=== PATIENT | female | born 1970 | race Caucasian/White ===

== ENCOUNTER 2018-08-29 09:38 | Outpatient (CLI) | payer BC, SELFPAY ==
--- NOTE | 2018-08-29 10:00 | DI.RAD_ITS ---
SYMPTOMS/DIAGNOSIS: CHRONIC BILATERAL SHOULDER PAIN, M25.511, M25.512 LEFT SHOULDER: There is spurring at the inferior aspect of the glenoid. The glenohumeral joint is well maintained. There is mild spurring of the AC joint. IMPRESSION: Moderate degenerative changes. RIGHT SHOULDER: There is spurring at the AC joint. There is mild spurring at the glenoid and inferior humeral head. The joint space is well maintained. IMPRESSION: Mild to moderate degenerative changes.
== END 2018-08-29 09:58 ==
PROVIDERS: PCP Nurse Practitioner Family; Visit Provider Nurse Practitioner Family
DX: M25.511 Pain in right shoulder (principal); M25.512 Pain in left shoulder; M19.011 Primary osteoarthritis, right shoulder; M19.012 Primary osteoarthritis, left shoulder
CPT/HCPCS: 73030

== ENCOUNTER 2018-08-29 10:26 | Outpatient (REF) | payer BC, SELFPAY ==
[2018-08-29 12:08] LABS: Abs Immature Grans 0.01 k/cumm (0.0-0.09); Absolute Basophil Count 0.02 k/cumm (0.0-0.2); Absolute Eosinophil Count 0.16 k/cumm (0.0-0.7); Absolute Lymphocyte Count 1.21 k/cumm (1.2-3.4); Absolute Monocyte Count 0.43 k/cumm (0.11-0.7); Absolute Neutrophil Count 2.71 k/cumm (1.2-6.7); Basophils % 0.4; Eosinophils % 3.5; HCT 44.4 % (36.0-46.0); HGB 14.4 g/dL (12.0-15.5); Immature Grans % 0.2; Lymphocytes % 26.7; Mean Corp. HGB Concentration 32.4 g/dL (32.0-36.0); Mean Corpuscular Volume 89.3 fL (80-95); Mean Platelet Volume 10.6 fL (8.0-11.0); Monocytes % 9.5; Neutrophils % 59.7; Platelet Count 260 x1000/uL (130-400); RBC 4.97 m/cumm (4.00-5.20); RBC Distribution Width 12.9 % (11.7-14.6); White Blood Cell Count 4.54 k/cumm (4.4-10.8)
[2018-08-29 12:19] LABS: ALT 34 U/L (12-78); AST 18 U/L (15-37); Albumin 3.7 g/dL (3.4-5.0); Alkaline Phosphatase 84 U/L (46-116); BUN 24 mg/dL (7-18); C-Reactive Protein 0.08 mg/dL (0.0-0.3); CREATININE 0.86 mg/dL (0.55-1.02); Calcium 9.1 mg/dL (8.5-10.1); Chloride 103 mmol/L (98-107); Creatine Kinase 83 U/L (26-192); Glucose 100 mg/dL (70-100); Potassium 4.4 mmol/L (3.5-5.1); Sodium 141 mmol/L (136-145); Total Protein 6.8 g/dL (6.4-8.2)
[2018-08-29 12:54] LABS: ESR 5 MM/HR (0-20)
[2018-08-30 10:16] LABS: Rheumatoid Factor <8 IU/mL (<12.5)
[2018-08-30 10:36] LABS: Lyme Ab w Rflx to Lyme Confirm Negative
[2018-08-30 14:39] LABS: ANA Interpretation Positive (NEGAT); ANA Titer Pattern 1:320 Speckled
== END 2018-08-29 10:46 ==
LOC: NCHCN 10:26
PROVIDERS: PCP Nurse Practitioner Family; Visit Provider Nurse Practitioner Family
DX: M79.10 Myalgia, unspecified site (principal)
CPT/HCPCS: 80053; 82550; 85652; 85025; 86038; 86140; 86431; 86618

== ENCOUNTER 2018-09-25 21:31 | Inpatient (IN) | payer BC, SELFPAY ==
[2018-09-25 21:54] VITALS: BP 159/111; PULSE 99; RESP 18; TEMP 37.2; O2SAT 99
[2018-09-25] MEDS: Ondansetron 4 MG/2 ML VIAL IVP (22:09)
[2018-09-25] MEDS: Normal Saline 1,000 ML 1000 ML IV (22:10)
[2018-09-25] MEDS: Ketorolac 15 MG/ML VIAL IVP (22:18)
[2018-09-25 22:21] LABS: Abs Immature Grans 0.01 k/cumm (0.0-0.09); Absolute Basophil Count 0.04 k/cumm (0.0-0.2); Absolute Eosinophil Count 0.19 k/cumm (0.0-0.7); Absolute Lymphocyte Count 1.96 k/cumm (1.2-3.4); Absolute Monocyte Count 0.66 k/cumm (0.11-0.7); Absolute Neutrophil Count 4.09 k/cumm (1.2-6.7); Basophils % 0.6; Eosinophils % 2.7; HCT 45.4 % (36.0-46.0); HGB 15.5 g/dL (12.0-15.5); Immature Grans % 0.1; Lymphocytes % 28.2; Mean Corp. HGB Concentration 34.1 g/dL (32.0-36.0); Mean Corpuscular Hemoglobin 29.4 pg (27.0-33.0); Monocytes % 9.5; Neutrophils % 58.9; Platelet Count 300 x1000/uL (130-400); RBC 5.28 m/cumm (4.00-5.20); RBC Distribution Width 12.6 % (11.7-14.6); White Blood Cell Count 6.95 k/cumm (4.4-10.8)
[2018-09-25 22:44] LABS: ALT 29 U/L (12-78); AST 19 U/L (15-37); Albumin 4.3 g/dL (3.4-5.0); Alkaline Phosphatase 83 U/L (46-116); Anion Gap 5.8 mmol/L (3-11); BUN 12 mg/dL (7-18); Bilirubin, Total 1.4 mg/dL (0.2-1.0); CO2 32.2 mmol/L (21.0-32.0); Chloride 103 mmol/L (98-107); Estimated GFR 59.69 (mL/min/1.73m2); Glucose 116 mg/dL (70-100); Lipase 175 U/L (73-393); Potassium 4.1 mmol/L (3.5-5.1); Sodium 141 mmol/L (136-145); Total Protein 7.8 g/dL (6.4-8.2)
--- NOTE | 2018-09-25 22:45 | DI.CT_ITS ---
SYMPTOMS/DIAGNOSIS: VOMITING, ? OBSTRUCTION CT SCAN OF THE ABDOMEN AND PELVIS: CT scan of the abdomen and pelvis was performed following the uneventful administration of intravenous contrast material. Comparison 10/14/17. The visualized lung bases are clear. The liver is normal in size. No suspicious hepatic mass is seen. The portal, superior mesenteric and splenic veins are patent. The gallbladder is negative. There is no biliary ductal dilatation. The pancreas, spleen, adrenal glands, kidneys, ureters and bladder are all unremarkable. The reproductive organs are unremarkable. There is moderate dilatation to the level of the mid small bowel. The terminal ileum is of normal caliber as is the colon. The findings are suspicious for a small bowel obstruction. No findings to suggest an acute appendicitis are present. There is a trace amount of free fluid in the pelvis. No pneumoperitoneum or significant abdominal or pelvic adenopathy is seen. The thoracic aorta is of normal caliber. Degenerative changes are seen in the spine. IMPRESSION: 1. Findings of a small bowel obstruction. The transition appears to lie in the mid pelvis (series 5 image 675). 2. Minimal ascites.
[2018-09-25] MEDS: Omnipaque 350 MG/ML 100 ML BTL IJ (22:52)
[2018-09-25] MEDS: Normal Saline Flush 10 ML SYR IVP (22:53)
[2018-09-25] MEDS: Lidocaine 2% Viscous 15 ML CUP (23:14)
--- NOTE | 2018-09-25 23:18 | ED.GENADUL_ITS ---
Discharge Plan Disposition Patient Disposition: [facility]IENT Condition: Good Discharge Details Chief Complaint: Abd Prob Clinical Impression: SBO (small bowel obstruction) Primary Care Provider: Bethel Oates ED Provider: Naif Frank Home Meds and New Rx's Prescriptions: No Action multivitamin with minerals 1 EACH tablet 1 ea PO DAILY RF: 0 gabapentin 300 MG capsule 300 mg PO TID RF: 0 Medical Decision Making Is a pleasant 47-year-old female with a past medical history of a Joie fundoplication who presents today for evaluation of retching and abdominal pain for the last 4 hours she does have a history of a previous obstruction. Physical exam demonstrates a mildly distended abdomen, slightly reduced bowel sounds. Signs and symptoms are notably concerning and suspicious for obstruction. Laboratory work-up demonstrates no elevated white count, normal hemoglobin, normal electrolytes, bilirubin is slightly elevated at 1.4, lipase is normal. Patient was given Zofran, this did not improve her symptoms. CT scan was ordered, we are pending formal report however personal observation as well as Dr. Vázquez's review of the images demonstrates notable evidence of small bowel obstruction. An NG tube was placed and the patient has notable improvement of her symptoms. Patient will be admitted under Dr. Vázquez for 24- hour observation. She has requested that I place bridging orders, and these have been placed. I have extensively reviewed the treatment plan with the patient. I have addressed all patient concerns at this time. I have also discussed the plan with the admitting physician and they agree with the current assessment and plan and have agreed to assume responsibility for the patient. All parties demonstrate verbal understanding and agreement with our assessment and plan at this time. CT results from virtual radiology demonstrate evidence of small bowel obstruction and minimal ascites. No other acute process. Patient will be admitted under Dr. Vázquez to the floor CLINICAL HISTORY: 47 years old, female; Pain and signs and symptoms; Generalized; Prior surgery; Surgery date: 6+ months; Surgery type: Hysterectomy, , tubal ligation; Patient HX: Severe abdominal pain and vomiting TECHNIQUE: Imaging protocol: Axial computed tomography images of the abdomen and pelvis with intravenous contrast. Coronal and sagittal reformatted images were created and reviewed. Radiation optimization: All CT scans at this facility use at least one of these dose optimization techniques: automated exposure control; mA and/or kV adjustment per patient size (includes targeted exams where dose is matched to clinical indication); or iterative reconstruction. Contrast material: OMNIPAQUE 350; Contrast volume: 100 ml; Contrast route: IV; COMPARISON: CT ABD PELVIS WITH CONTRAST 10/14/2017 10:33 PM FINDINGS: ABDOMEN: Liver: Normal. No mass. Gallbladder and bile ducts: Normal. No calcified stones. No ductal dilation. Pancreas: Normal. No ductal dilation. Spleen: Normal. No splenomegaly. Adrenals: Normal. No mass. Kidneys and ureters: Normal. No hydronephrosis. Stomach and bowel: Small bowel obstruction. Appendix: No evidence of appendicitis. PELVIS: Bladder: Unremarkable as visualized. Reproductive: Status post hysterectomy. ABDOMEN and PELVIS: Intraperitoneal space: Minimal ascites. Bones/joints: No acute fracture. No dislocation. Soft tissues: Unremarkable. Vasculature: Normal. No abdominal aortic aneurysm. Lymph nodes: Normal. No enlarged lymph nodes. IMPRESSION: 1. Small bowel obstruction. 2. Minimal ascites. Thank you for allowing us to participate in the care of your patient. Dictated and Authenticated by: Mayito Perez MD 09/25/2018 11:21 PM Eastern Time ([place] & [place]) HPI General Date/Time Provider Initiated Documentation: 09/25/18 21:52 . HPI Narrative: This is a pleasant 47-year-old female with a past medical history of a laparoscopic Joie procedure, hysterectomy, who presents today for evaluation of abdominal pain and vomiting for the last 4 hours. Patient states that she has had a previous obstruction in the past and this does feel similar to that. She denies any hematemesis, she is actually been retching more so than actually vomiting. She denies any diarrhea, fever or chills. She does admit to mild abdominal pain and discomfort which she describes is notably crampy. She denies any chest pain or shortness of breath. She has no other complaints at this time. No other modifying factors. Related Data Home Medications Medication Instructions Recorded Confirmed multivitamin with minerals 1 ea PO DAILY 06/22/14 09/25/18 gabapentin 300 mg PO TID 08/29/17 09/25/18 Allergies Allergy/AdvReac Type Severity Reaction Status Date / Time Penicillins Allergy Unknown unknown Unverified 09/25/18 21:59 General Stated Complaint: Abd Prob JERICA: 3 Review of Systems Review of Systems All systems reviewed & are unremarkable except as noted in HPI and below PFSH Medical History Carpal tunnel syndrome Endometriosis uterine fibroids Surgical History Vaginal hysterectomy Social History Smoking/Tobacco Use Status: Never Alcohol Intake: never Drug use: Never Do you feel safe at home: Yes Do you feel safe in your relationship?: Yes Exam Narrative Exam Narrative: 1.Const: Well-nourished, Well-developed, appearing stated age 2.Eyes: PERRL, no conjunctival injection, and symmetrical lids. 3.ENT: Atraumatic external nose and ears. Moist MM. Neck: Symmetric, trachea midline, No thyromegaly. 4.CVS: +S1/S2, No murmurs or gallops. Peripheral pulses 2+ and equal in all extremities. Brisk capillary refill in all extremities. 5.RESP: Unlabored respiratory effort. Clear to auscultation bilaterally. No wheezes rales or rhonchi 6.GI: Soft, minimally distended, No hepatosplenomegaly. No guarding or rebound. Generalized tenderness throughout. Reduced bowel sounds are noted. 7.MSK: Normocephalic/Atraumatic, Extremities w/o deformity or ttp No cyanosis or clubbing, Normal movement of all extremities 8.Skin: Warm, Dry. No rashes or lesions. 9.Neuro: supervisor counseling and guidance II-XII grossly intact. Sensation grossly intact, no focal neurologic deficits. 10.Psych: (AAO) x3. Appropriate mood and affect Course Vital Signs Temperature 37.2 C 09/25/18 21:54 Pulse 99 H 09/25/18 21:54 Respiratory Rate 18 09/25/18 21:54 Blood Pressure 159/111 H 09/25/18 21:54 Pulse Oximetry 99 09/25/18 21:54 Temperature 37.2 C 09/25/18 21:54 Temperature Source Skin 09/25/18 21:54 Pulse 99 H 09/25/18 21:54 Respiratory Rate 18 09/25/18 21:54 Respiratory Effort Non-Labored 09/25/18 21:59 Blood Pressure 159/111 H 09/25/18 21:54 Blood Pressure Position Sitting 09/25/18 21:54 Pulse Oximetry 99 09/25/18 21:54 Oxygen Delivery Method Room Air 09/25/18 21:54 Oxygen Flow Rate 0 09/25/18 21:54 Pain Level 10 09/25/18 22:15 Lab/Test Results Lab/Test Results: Laboratory Tests Range/Units 09/25/18 09/25/18 22:10 22:10 WBC (4.4-10.8) k/cumm 6.95 RBC (4.00-5.20) m/cumm 5.28 H Hgb (12.0-15.5) g/dL 15.5 Hct (36.0-46.0) % 45.4 MCV (80-95) fL 86.0 MCH (27.0-33.0) pg 29.4 MCHC (32.0-36.0) g/dL 34.1 RDW (11.7-14.6) % 12.6 Plt Count (130-400) x1000/uL 300 MPV (8.0-11.0) fL 10.0 Immature Gran % 0.1 Neutrophils % 58.9 Lymphocytes % 28.2 Monocytes % 9.5 Eosinophils % 2.7 Basophils % 0.6 Absolute Neutrophils (1.2-6.7) k/cumm 4.09 Absolute Lymphocytes (1.2-3.4) k/cumm 1.96 Absolute Monocytes (0.11-0.7) k/cumm 0.66 Absolute Eosinophils (0.0-0.7) k/cumm 0.19 Absolute Basophils (0.0-0.2) k/cumm 0.04 Sodium (136-145) mmol/L 141 Potassium (3.5-5.1) mmol/L 4.1 Chloride (98-107) mmol/L 103 Carbon Dioxide (21.0-32.0) mmol/L 32.2 H Anion Gap (3-11) mmol/L 5.8 BUN (7-18) mg/dL 12 Creatinine (0.55-1.02) mg/dL 1.00 Estimated GFR/1.73 m2 (mL/min/1.73m2) 59.69 Glucose (70-100) mg/dL 116 H Calcium (8.5-10.1) mg/dL 10.0 Total Bilirubin (0.2-1.0) mg/dL 1.4 H AST (15-37) U/L 19 ALT (12-78) U/L 29 Alkaline Phosphatase (46-116) U/L 83 Total Protein (6.4-8.2) g/dL 7.8 Albumin (3.4-5.0) g/dL 4.3 Lipase (73-393) U/L 175
[2018-09-25] MEDS: LORazepam 2 MG/ML VIAL 0.5 MG IVP (23:20)
--- NOTE | 2018-09-25 23:21 | DI.VRAD_ITS ---
EXAM: CT Abdomen and Pelvis With Contrast EXAM DATE/TIME: 09/25/2018 10:48 PM CLINICAL HISTORY: 47 years old, female; Pain and signs and symptoms; Generalized; Prior surgery; Surgery date: 6+ months; Surgery type: Hysterectomy, , tubal ligation; Patient HX: Severe abdominal pain and vomiting TECHNIQUE: Imaging protocol: Axial computed tomography images of the abdomen and pelvis with intravenous contrast. Coronal and sagittal reformatted images were created and reviewed. Radiation optimization: All CT scans at this facility use at least one of these dose optimization techniques: automated exposure control; mA and/or kV adjustment per patient size (includes targeted exams where dose is matched to clinical indication); or iterative reconstruction. Contrast material: OMNIPAQUE 350; Contrast volume: 100 ml; Contrast route: IV; COMPARISON: CT ABD PELVIS WITH CONTRAST 10/14/2017 10:33 PM FINDINGS: ABDOMEN: Liver: Normal. No mass. Gallbladder and bile ducts: Normal. No calcified stones. No ductal dilation. Pancreas: Normal. No ductal dilation. Spleen: Normal. No splenomegaly. Adrenals: Normal. No mass. Kidneys and ureters: Normal. No hydronephrosis. Stomach and bowel: Small bowel obstruction. Appendix: No evidence of appendicitis. PELVIS: Bladder: Unremarkable as visualized. Reproductive: Status post hysterectomy. ABDOMEN and PELVIS: Intraperitoneal space: Minimal ascites. Bones/joints: No acute fracture. No dislocation. Soft tissues: Unremarkable. Vasculature: Normal. No abdominal aortic aneurysm. Lymph nodes: Normal. No enlarged lymph nodes. IMPRESSION: 1. Small bowel obstruction. 2. Minimal ascites. Dictated and Authenticated by: Mayito Perez MD. Ordering:LEE ANN Disla MD
[2018-09-25 23:26] VITALS: BP 133/74; PULSE 87; RESP 18; TEMP 36.8; O2SAT 97
[2018-09-26] VITALS (8 sets, daily range): BP systolic 117–153; BP diastolic 63–92; PULSE 56–76; RESP 14–18; TEMP 36.6–37.1; O2SAT 94–99
[2018-09-26] MEDS: Normal Saline Flush 10 ML SYR IVP ×3 (00:38→11:27)
[2018-09-26] MEDS: Normal Saline 1,000 ML 200 ML IV ×2 (00:38→05:30)
[2018-09-26] MEDS: HYDROmorphone 2 MG/ML VIAL 0.5 MG IVP (01:51)
--- NOTE | 2018-09-26 06:29 | HPE_ITS ---
Date of service: 09/26/18 Time of Service: 06:29 Assessment and Plan (1) Partial small bowel obstruction: Current visit: No Status: Acute 47 y/o female who presents with signs and symptoms of small bowel obstr uction. Clinically improving with bowel rest and NG decompression. (+) flatus and decreased pain. Follow-up AXR ordered for today. Follow-up labs in am. Continue NG decompression for now. May have ice chips. Will sign out to consulting senior practice director surgoen. History of Present Illness Chief Complaint: Abdominal pain Narrative: 47 y/o female admitted through the ED with abdominal pain, nausea, and vomiting. Patient notes that she ate a sandwich at about 7:30 pm last night and shortly afterwards developed severe mid-upper abdominal pain and nausea. She had some bilious fluid emesis but was mostly retchiing and having dry heaves. She is s/p Joie fundoplication. She has also had a hysterectomy. She notes that her last surgery was ~ 2009. She last had a BM yesterday morning which was formed and regular. She is passing flatus today. Her abdominal pain is improved this am but still present. CT abd/pelvis was performed in the ED last night. Films reviewed. Large gastric bubble seen with fluid filled distended small bowel loops on my review. CT is similar in appearance to her CT from September 2017 when she was also hospitalized for SBO. NG placed in the ED with 450 cc output recorded since it was placed. WBC WNL. Review of Systems Review of Systems All systems reviewed & are unremarkable except as noted in HPI and below Constitutional Denies chills, Denies fever(s) and Reports other (hot flashes) Cardiovascular Denies chest pain, Denies rapid heart rate and Denies dyspnea Respiratory Denies cough and Denies dyspnea Gastrointestinal Reports abdominal pain, Denies constipation, Denies diarrhea, Reports nausea and Reports vomiting Genitourinary Denies hematuria, Reports hot flashes and Denies dysuria Musculoskeletal Reports myalgias and Reports arthralgias Comments: Patient notes she has an appointment to see a liquified natural gas technician this week [facility] Medical History Carpal tunnel syndrome Endometriosis uterine fibroids Surgical History History of Joie fundoplication (Chronic) Vaginal hysterectomy Social History Smoking/Tobacco Use Status: Never Alcohol Intake: never Drug use: Never Do you feel safe at home: Yes Do you feel safe in your relationship?: Yes Meds Home Medications Medication Instructions Recorded Confirmed Type multivitamin with minerals 1 ea PO DAILY 06/22/14 09/25/18 History gabapentin 300 mg PO TID 08/29/17 09/25/18 History Allergies Allergy/AdvReac Type Severity Reaction Status Date / Time Penicillins Allergy Unknown unknown Unverified 09/25/18 21:59 Exam Const General: cooperative and no acute distress Nutritional Appearance: average body habitus Orientation: alert and oriented x3 HENMT Head: normocephalic and atraumatic Ears: hearing grossly normal bilaterally Eyes Sclera: sclerae normal Resp Effort & Inspection: normal respiratory effort and able to speak in complete se ntences Auscultation: clear to auscultation bilaterally Cardio Rate: regular rate Rhythm: regular rhythm GI Inspection: non-distended Palpation: soft, not firm, no guarding, not rigid and tender in the epigastrum (mildly tender to palpation) Auscultation: normal bowel sounds Skin General skin exam: no rashes or lesions noted and no jaundice Neuro General: alert and oriented x3 Speech: speech normal Results Imaging Abdomen CT scan report/results: report reviewed and image reviewed CT scan - pelvis: report reviewed and image reviewed Imaging Studies: Patient Name: LILIANA GREY #: [id number]: ER Ordering Provider: : REG ER Primary Care Provider: Bethel Oates NPDate of Exam: 09/25/18Sex: F : 1970Age: 47 Exam(s) EXAM: CT Abdomen and Pelvis With Contrast EXAM DATE/TIME: 09/25/2018 10:48 PM CLINICAL HISTORY: 47 years old, female; Pain and signs and symptoms; Generalized; Prior surgery; Surgery date: 6+ months; Surgery type: Hysterectomy, , tubal ligation; Patient HX: Severe abdominal pain and vomiting TECHNIQUE: Imaging protocol: Axial computed tomography images of the abdomen and pelvis with intravenous contrast. Coronal and sagittal reformatted images were created and reviewed. Radiation optimization: All CT scans at this facility use at least one of these dose optimization techniques: automated exposure control; mA and/or kV adjustment per patient size (includes targeted exams where dose is matched to clinical indication); or iterative reconstruction. Contrast material: OMNIPAQUE 350; Contrast volume: 100 ml; Contrast route: IV; COMPARISON: CT ABD PELVIS WITH CONTRAST 10/14/2017 10:33 PM FINDINGS: ABDOMEN: Liver: Normal. No mass. Gallbladder and bile ducts: Normal. No calcified stones. No ductal dilation. Pancreas: Normal. No ductal dilation. Spleen: Normal. No splenomegaly. Adrenals: Normal. No mass. Kidneys and ureters: Normal. No hydronephrosis. Stomach and bowel: Small bowel obstruction. Appendix: No evidence of appendicitis. PELVIS: Bladder: Unremarkable as visualized. Reproductive: Status post hysterectomy. ABDOMEN and PELVIS: Intraperitoneal space: Minimal ascites. Bones/joints: No acute fracture. No dislocation. Soft tissues: Unremarkable. Vasculature: Normal. No abdominal aortic aneurysm. Lymph nodes: Normal. No enlarged lymph nodes. IMPRESSION: 1. Small bowel obstruction. 2. Minimal ascites. Dictated and Authenticated by: Mayito Perez MD. Ordering:LEE ANN Disla MD Ordered By: CC: Dictated By: Reports vrad 09/25/18 2248 09/25/18 [id number] Transcribed By: Jennifer Farmer This is privileged, confidential information intended only for the provider named. Any use or distribution by any person other than this provider is strictly prohibited. If you receive this report in error, please notify us immediately at [phone] and return the original report to us at the address above. Thank-you. Labs : 09/25/18 22:10 09/25/18 22:10 Laboratory Results - last 24 hr 09/25/18 09/25/18 22:10 22:10 WBC 6.95 RBC 5.28 H Hgb 15.5 Hct 45.4 MCV 86.0 MCH 29.4 MCHC 34.1 RDW 12.6 Plt Count 300 MPV 10.0 Immature Gran % 0.1 Neutrophils % 58.9 Lymphocytes % 28.2 Monocytes % 9.5 Eosinophils % 2.7 Basophils % 0.6 Absolute Neutrophils 4.09 Absolute Lymphocytes 1.96 Absolute Monocytes 0.66 Absolute Eosinophils 0.19 Absolute Basophils 0.04 Sodium 141 Potassium 4.1 Chloride 103 Carbon Dioxide 32.2 H Anion Gap 5.8 BUN 12 Creatinine 1.00 Estimated GFR/1.73 m2 59.69 Glucose 116 H Calcium 10.0 Total Bilirubin 1.4 H AST 19 ALT 29 Alkaline Phosphatase 83 Total Protein 7.8 Albumin 4.3 Lipase 175 Last Vital Signs Temp 36.8 C 09/26/18 00:35 Pulse 61 09/26/18 00:35 Resp 18 09/26/18 00:35 BP 145/81 H 09/26/18 00:35 Pulse Ox 95 09/26/18 00:35
--- NOTE | 2018-09-26 08:32 | DI.RAD_ITS ---
SYMPTOMS/DIAGNOSIS: SMALL BOWEL OBSTRUCTION FLAT AND UPRIGHT ABDOMEN: Comparison CT scan is from the day prior. The visualized lung bases are clear. There is a nasogastric tube coiled in the proximal stomach. The bowel gas pattern is nonspecific. No air fluid levels are seen. There is a large amount of stool seen throughout the colon which may represent constipation. No organomegaly or pneumoperitoneum is present. IMPRESSION: Significant improvement in the appearance of the small bowel compared to the CT scan from 09/25/18. No significant dilated loops of small bowel are appreciated.
[2018-09-26] MEDS: Pantoprazole 40 MG VIAL IVP (11:27)
[2018-09-26] MEDS: Normal Saline 1,000 ML 125 ML IV ×2 (14:27→22:19)
--- NOTE | 2018-09-26 15:28 | PDOC.CMIN ---
- If Service Date Differs Date of service: 09/26/18 Time of Service: 15:28 Care Management Initial Assess REASON FOR HOSPITALIZATION:: Bowel obstruction PAST MEDICAL HISTORY/PAST SURGICAL HISTORY:: Medical hx:GERD; Surgical Hx: Hysterectomy, Surgical: maximilian funduplication PREVIOUS FUNCTIONAL STATUS/SOCIAL/FAMILY SUPPORTS:: Karime lives in [place] in her home. She states her support person is her Boyfriend Matt. She has grown children. 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 Karime is independent with transportation and ADL's. CURRENT FUNCTIONAL STATUS:: Karime is lying in bed she has the NG tube in place her SO is at the bedside. She states she is frustrated she continues to need the NG tube in place. She states she has been working with a regional sales trainer to lose weight and eat better. She states that she has been instructed to eat 25 grams of fiber today she states she has been eating more fruits and vegetables. ADVANCE DIRECTIVES:: None on file - CM offered packet to review. Has patient been provided with information about the portal?: Yes Did the patient sign up for the portal?: No CODE STATUS:: Full Code INSURANCE COVERAGE / FINANCIAL ISSUES:: BCBS CURRENT HOME/COMMUNITY SERVICES/EQUIPMENT:: None PRIMARY CARE PHYSICIAN:: Bethel Oates NP POTENTIAL DISCHARGE NEEDS:: Follow up appointment with primary and surgeon as directed prior to discharge. PATIENT/FAMILY EDUCATION NEEDS:: Discharge education, limitations and follow up plan of care including ask me three and self management. ANTICIPATED BARRIERS TO DISCHARGE:: None TRANSPORTATION:: Via private car with family at time of discharge. PLAN:: Karime is receiving IV fluids and has an NG tube in place and remians NPO. She will be discharged home when medically ready per provider. She will not need any addtional services and will transport home with her boyfriend. CM to continue to provide support discharge planning and disposition.
--- NOTE | 2018-09-26 15:41 | INITIAL_ITS ---
- If Service Date Differs Date of service: 09/26/18 Time of Service: 15:28 Care Management Initial Assess REASON FOR HOSPITALIZATION:: Bowel obstruction PAST MEDICAL HISTORY/PAST SURGICAL HISTORY:: Medical hx:GERD; Surgical Hx: Hysterectomy, Surgical: maximilian funduplication PREVIOUS FUNCTIONAL STATUS/SOCIAL/FAMILY SUPPORTS:: Karime lives in [place] in her home. She states her support person is her Boyfriend Matt. She has grown children. 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 Karime is independent with transportation and ADL's. CURRENT FUNCTIONAL STATUS:: Karime is lying in bed she has the NG tube in place her SO is at the bedside. She states she is frustrated she continues to need the NG tube in place. She states she has been working with a sports trainer to lose weight and eat better. She states that she has been instructed to eat 25 grams of fiber today she states she has been eating more fruits and vegetables. ADVANCE DIRECTIVES:: None on file - CM offered packet to review. Has patient been provided with information about the portal?: Yes Did the patient sign up for the portal?: No CODE STATUS:: Full Code INSURANCE COVERAGE / FINANCIAL ISSUES:: BCBS CURRENT HOME/COMMUNITY SERVICES/EQUIPMENT:: None PRIMARY CARE PHYSICIAN:: Bethel Oates NP POTENTIAL DISCHARGE NEEDS:: Follow up appointment with primary and surgeon as directed prior to discharge. PATIENT/FAMILY EDUCATION NEEDS:: Discharge education, limitations and follow up plan of care including ask me three and self management. ANTICIPATED BARRIERS TO DISCHARGE:: None TRANSPORTATION:: Via private car with family at time of discharge. PLAN:: Karime is receiving IV fluids and has an NG tube in place and remians NPO. She will be discharged home when medically ready per provider. She will not need any addtional services and will transport home with her boyfriend. CM to continue to provide support discharge planning and disposition.
[2018-09-26] MEDS: Enoxaparin 40 MG/0.4 ML SYR SC (16:00)
[2018-09-26] MEDS: FAMOTIDINE 20 MG/50 ML BAG 200 MG IVPB (16:39)
[2018-09-27 03:47] VITALS: BP 141/76; PULSE 61; RESP 17; TEMP 36.3; O2SAT 99
[2018-09-27] MEDS: FAMOTIDINE 20 MG/50 ML BAG 200 MG IVPB ×2 (04:00→16:00)
[2018-09-27] MEDS: Normal Saline 1,000 ML 125 ML IV ×2 (06:23→18:50)
[2018-09-27 07:06] LABS: Abs Immature Grans 0.01 k/cumm (0.0-0.09); Absolute Basophil Count 0.02 k/cumm (0.0-0.2); Absolute Lymphocyte Count 1.38 k/cumm (1.2-3.4); Absolute Monocyte Count 0.49 k/cumm (0.11-0.7); Absolute Neutrophil Count 3.36 k/cumm (1.2-6.7); Basophils % 0.4; Eosinophils % 3.7; HCT 39.9 % (36.0-46.0); HGB 12.8 g/dL (12.0-15.5); Immature Grans % 0.2; Lymphocytes % 25.3; Mean Corp. HGB Concentration 32.1 g/dL (32.0-36.0); Mean Corpuscular Hemoglobin 28.6 pg (27.0-33.0); Mean Corpuscular Volume 89.1 fL (80-95); Mean Platelet Volume 10.2 fL (8.0-11.0); Neutrophils % 61.4; Platelet Count 205 x1000/uL (130-400); RBC 4.48 m/cumm (4.00-5.20); RBC Distribution Width 12.6 % (11.7-14.6); White Blood Cell Count 5.46 k/cumm (4.4-10.8)
[2018-09-27 07:15] VITALS: BP 117/71; PULSE 62; RESP 16; TEMP 36.9; O2SAT 97
[2018-09-27 07:18] LABS: BUN 12 mg/dL (7-18); Calcium 7.9 mg/dL (8.5-10.1); Chloride 110 mmol/L (98-107); Glucose 81 mg/dL (70-100); Magnesium 1.7 mg/dL (1.8-2.4); Potassium 3.8 mmol/L (3.5-5.1); Sodium 146 mmol/L (136-145)
--- NOTE | 2018-09-27 07:49 | W.PM.PROGNOT ---
Documented by User: RONALD Dye 09/27/18 07:55 Date of Service Date of service: 09/27/18 Time of Service: 07:49 Assessment and Plan (1) Partial small bowel obstruction: Current visit: Yes Status: Acute NG tube less than <100 mLs output from 1500 (09/26) until this morning. Will clamp and check residuals, if less than 60 will pull the NG tube. NSG notified. Encouraged activity out of bed and ambulating as tolerated. Normal Bowel sounds. No BM Continue NPO Subjective Interval history since last seen: Patient reports that she is feeling okay this morning and has been passing some flatus. Denies any nausea or vomiting at this time. No BM. Denies feeling hungry at this point. Exam Const General: cooperative and comfortable Orientation: alert and oriented x3 Resp Effort & Inspection: normal respiratory effort, no audible wheezes and no cough GI Inspection: normal to inspection and non-distended Palpation: soft, no guarding and nontender Auscultation: normal bowel sounds Objective Objective Clinical Data: Abnormal lab results 09/27/18 Range/Units 06:15 Sodium 146 H (136-145) mmol/L Chloride 110 H (98-107) mmol/L Calcium 7.9 L (8.5-10.1) mg/dL Magnesium 1.7 L (1.8-2.4) mg/dL Vital Signs Temperature 36.3 C L 09/27/18 03:47 Temperature Source Tympanic 09/27/18 03:47 Pulse 61 09/27/18 03:47 Pulse Rhythm Regular 09/27/18 07:32 Respiratory Rate 17 09/27/18 03:47 Respiratory Effort 09/27/18 07:32 Respiratory Depth Normal 09/26/18 20:36 Respiratory Pattern Normal 09/27/18 07:32 Blood Pressure 141/76 H 09/27/18 03:47 Blood Pressure Position Sitting 09/25/18 21:54 Pulse Oximetry 99 09/27/18 03:47 Oxygen Delivery Method Room Air 09/27/18 03:47 Oxygen Flow Rate 0 09/27/18 03:47 Pain Level 3 09/26/18 20:08 Intake & Output 09/26/18 09/27/18 09/27/18 18:59 06:59 18:59 Intake Total 850 / 2893.333 2043.333 / 2893.333 Output Total 400 / 1200 800 / 1200 Balance 450 / 4865.514 5058.333 / 1693.333 Weight 73.4 kg Intake: IV 850 / 2893.333 2043.333 / 2893.333 Output: Gastric Drainage 200 / 1000 800 / 1000 Left Nare 200 / 1000 800 / 1000 Urine 200 / 200 Other: Urine Color Yellow Pale Straw Urine Appearance Clear Clear Urine Odor Normal None Voiding Methods Toilet Toilet Laboratory Results WBC 5.46 k/cumm (4.4-10.8) 09/27/18 06:15 RBC 4.48 m/cumm (4.00-5.20) 09/27/18 06:15 Hgb 12.8 g/dL (12.0-15.5) D 09/27/18 06:15 Hct 39.9 % (36.0-46.0) 09/27/18 06:15 MCV 89.1 fL (80-95) 09/27/18 06:15 MCH 28.6 pg (27.0-33.0) 09/27/18 06:15 MCHC 32.1 g/dL (32.0-36.0) 09/27/18 06:15 RDW 12.6 % (11.7-14.6) 09/27/18 06:15 Plt Count 205 x1000/uL (130-400) 09/27/18 06:15 MPV 10.2 fL (8.0-11.0) 09/27/18 06:15 Immature Gran % 0.2 09/27/18 06:15 Neutrophils % 61.4 09/27/18 06:15 Lymphocytes % 25.3 09/27/18 06:15 Monocytes % 9.0 09/27/18 06:15 Eosinophils % 3.7 09/27/18 06:15 Basophils % 0.4 09/27/18 06:15 Absolute Neutrophils 3.36 k/cumm (1.2-6.7) 09/27/18 06:15 Absolute Lymphocytes 1.38 k/cumm (1.2-3.4) 09/27/18 06:15 Absolute Monocytes 0.49 k/cumm (0.11-0.7) 09/27/18 06:15 Absolute Eosinophils 0.20 k/cumm (0.0-0.7) 09/27/18 06:15 Absolute Basophils 0.02 k/cumm (0.0-0.2) 09/27/18 06:15 Sodium 146 mmol/L (136-145) H 09/27/18 06:15 Potassium 3.8 mmol/L (3.5-5.1) 09/27/18 06:15 Chloride 110 mmol/L (98-107) H 09/27/18 06:15 Carbon Dioxide 29.0 mmol/L (21.0-32.0) 09/27/18 06:15 Anion Gap 7.0 mmol/L (3-11) 09/27/18 06:15 BUN 12 mg/dL (7-18) 09/27/18 06:15 Creatinine 0.80 mg/dL (0.55-1.02) 09/27/18 06:15 Estimated GFR/1.73 m2 >= 60.00 (mL/min/1.73m2) 09/27/18 06:15 Glucose 81 mg/dL (70-100) 09/27/18 06:15 Calcium 7.9 mg/dL (8.5-10.1) L 09/27/18 06:15 Magnesium 1.7 mg/dL (1.8-2.4) L 09/27/18 06:15 Total Bilirubin 1.4 mg/dL (0.2-1.0) H 09/25/18 22:10 AST 19 U/L (15-37) 09/25/18 22:10 ALT 29 U/L (12-78) 09/25/18 22:10 Alkaline Phosphatase 83 U/L (46-116) 09/25/18 22:10 Total Protein 7.8 g/dL (6.4-8.2) 09/25/18 22:10 Albumin 4.3 g/dL (3.4-5.0) 09/25/18 22:10 Lipase 175 U/L (73-393) 09/25/18 22:10 Documented by User: Marcella Denis Cristian, 09/27/18 20:29 Assessment and Plan (1) Partial small bowel obstruction: Current visit: Yes Status: Acute pt xray is signif improved today. still lg amount of stool in the colon. pt NGT has been remove she is tolerated cl liq. Had few sm pellet sized BM min pain She has been sipping on Mg citrate. encouraged her to finish to facilitate BM. encourage walking liquids as tolerated. pt son graduates from school tomorrow and wants to be there.
--- NOTE | 2018-09-27 08:30 | DI.RAD_ITS ---
SYMPTOM/DIAGNOSIS: SBO UPRIGHT ABDOMEN: The bowel gas pattern is nonspecific. There is no evidence of obstruction. A nasogastric tube ends in the body of the stomach. SUMMARY: No significant interval change. No evidence of obstruction.
[2018-09-27] MEDS: Pantoprazole 40 MG VIAL IVP (10:59)
[2018-09-27] MEDS: Normal Saline Flush 10 ML SYR IVP (11:00)
[2018-09-27 11:15] VITALS: BP 127/78; PULSE 68; RESP 16; TEMP 36.3; O2SAT 99
[2018-09-27] MEDS: Bisacodyl 10 MG SUPP PR (11:31)
[2018-09-27] MEDS: Polyethylene Glycol 3350 17 GM PACKET PO (11:31)
[2018-09-27] MEDS: MAGNESIUM SULFATE 2 GM/50 ML BAG IVPB (14:08)
[2018-09-27 16:01] VITALS: BP 125/70; PULSE 66; RESP 17; TEMP 37.1; O2SAT 98
[2018-09-27] MEDS: Magnesium Citrate 300 ML BTL PO (16:01)
--- NOTE | 2018-09-27 17:22 | PDOC.CMPRO ---
- If Service Date Differs Date of service: 09/27/18 Time of Service: 17:22 Care Management Progress Note S/O: Karime remains observation, her NG tube has been removed. She is being given medications to assist with bowel movement as her abdominal series shows she has a large amount of stool. Anticipate is she is able to have a bowel movement and tolerate oral intake she will be discharged in the next 24 hours. A: Karime is a 47 year old female admitted with obstruction. P:Karime is receiving IV fluids she remains observation. She will be discharged home when medically ready per provider. She will not need any additional services and will transport home with her boyfriend. CM to continue to provide support discharge planning and disposition.
[2018-09-27] MEDS: Enoxaparin 40 MG/0.4 ML SYR SC (18:12)
[2018-09-27 19:00] VITALS: BP 128/90; PULSE 71; RESP 16; TEMP 36.7; O2SAT 97
[2018-09-28] MEDS: Normal Saline 1,000 ML 125 ML IV (02:31)
[2018-09-28] MEDS: FAMOTIDINE 20 MG/50 ML BAG 200 MG IVPB (04:22)
[2018-09-28 05:15] VITALS: BP 127/71; PULSE 64; RESP 16; TEMP 36.7; O2SAT 98
[2018-09-28 07:20] VITALS: BP 125/82; PULSE 57; RESP 17; TEMP 36.3; O2SAT 100
[2018-09-28] MEDS: Polyethylene Glycol 3350 17 GM PACKET PO (08:38)
--- NOTE | 2018-09-28 09:47 | W.PM.DS.N ---
Date of service: 09/28/18 Time of Service: 09:47 DS: Diagnosis Discharge Diagnosis (1) Partial small bowel obstruction: Status: Acute Discharge Plan Disposition Patient Disposition: HOME Condition: Good Discharge Details Reason For Visit: OBSTRUCTION Admit Date/Time: 09/27/18 19:11 Admit Provider: Marcella Foster Attending Provider: Marcella Foster Primary Care Provider: Bethel Oates Hospital Course Hospital Course: Pt was admitted for partial SBO. This did reserve w/ conservative medical management and no surgical intervention. She has no pain. no N/v and had a lg BM at the time of d/c. She had no complications during admission. Home Meds and New Rx's Prescriptions: No Action multivitamin with minerals 1 EACH tablet 1 ea PO DAILY RF: 0 gabapentin 300 MG capsule 300 mg PO TID RF: 0 Discharge Instructions Instructions: Low Fiber Diet (DC), Low Fiber Diet (GEN) Additional Instructions: push non-caffeined fluids. 8-12 glasses per day soft/bland diet for 1wk. avoid raw vegy/breads/crackers/pork/steak x 1 wk walk /activity to tolerance avoid constipation MOM or Miralax as needed Stand Alone Forms: Nursing Discharge Form Referrals: Bethel Oates [employer]SACTION COORDINATOR [Primary Care Provider] - 10/11/18 1:30 pm Activity:: Activity as Tolerated Equipment/Supplies:: No Equipment Needed Diet:: low fiber x 1 wk Discharge Orders Discharge Orders: Discharge Order (Routine); Ordered 09/28/18 Ordered By: Marcella oFster Discharge Data Discharge Date/Time-TO BE ENTERED AT DEPARTURE: 09/28/18 10:35 DS: Data Vitals/I&O Vitals and I&O: Vital Signs Temperature 36.3 C L 09/28/18 07:20 Temperature Source Tympanic 09/28/18 07:20 Pulse 57 L 09/28/18 07:20 Pulse Rhythm Regular 09/28/18 07:41 Respiratory Rate 17 09/28/18 07:20 Respiratory Effort 09/28/18 07:41 Respiratory Depth Normal 09/28/18 07:41 Respiratory Pattern Normal 09/28/18 07:41 Blood Pressure 125/82 09/28/18 07:20 Blood Pressure Position Sitting 09/25/18 21:54 Pulse Oximetry 100 09/28/18 07:20 Oxygen Delivery Method Room Air 09/28/18 07:20 Oxygen Flow Rate 0 09/28/18 07:20 Pain Level 2 09/27/18 11:15 Intake & Output 09/27/18 09/27/18 09/28/18 11:59 23:59 11:59 Intake Total 1281.25 / 2940.00 1658.75 / 2940.00 1710.417 / 1710.417 Output Total 250 / 1150 900 / 1150 Balance 1031.25 / 1790.00 758.75 / 1790.00 1710.417 / 1710.417 Weight 73.4 kg 74.8 kg Intake: IV 1281.25 / 2100.00 818.75 / 2100.00 1020.417 / 1020.417 Oral 840 / 840 690 / 690 Output: Gastric Drainage 250 / 250 Left Nare 250 / 250 Stool 900 / 900 Other: Urine Color Pale Pale Pale Yellow Yellow Urine Appearance Clear Clear Clear Urine Odor None None None Comment Patient voiding independantly Voiding independantly Stool Size Copious Small Stool Characteristics Liquid Liquid Brown Voiding Methods Toilet Toilet Toilet [facility] Medical History Partial small bowel obstruction (Acute) Carpal tunnel syndrome Endometriosis uterine fibroids Surgical History History of Joie fundoplication (Chronic) Vaginal hysterectomy Social History Smoking/Tobacco Use Status: Never Alcohol Intake: never Drug use: Never Do you feel safe at home: Yes Do you feel safe in your relationship?: Yes
--- NOTE | 2018-09-28 09:50 | DSE_ITS ---
Date of service: 09/28/18 Time of Service: 09:47 DS: Diagnosis Discharge Diagnosis (1) Partial small bowel obstruction: Status: Acute Discharge Plan Disposition Patient Disposition: HOME Condition: Good Discharge Details Reason For Visit: OBSTRUCTION Admit Date/Time: 09/27/18 19:11 Admit Provider: Marcella Foster Attending Provider: Marcella Foster Primary Care Provider: Bethel Oates Hospital Course Hospital Course: Pt was admitted for partial SBO. This did reserve w/ conservative medical management and no surgical intervention. She has no pain. no N/v and had a lg BM at the time of d/c. She had no complications during admission. Home Meds and New Rx's Prescriptions: No Action multivitamin with minerals 1 EACH tablet 1 ea PO DAILY RF: 0 gabapentin 300 MG capsule 300 mg PO TID RF: 0 Discharge Instructions Instructions: Low Fiber Diet (DC), Low Fiber Diet (GEN) Additional Instructions: push non-caffeined fluids. 8-12 glasses per day soft/bland diet for 1wk. avoid raw vegy/breads/crackers/pork/steak x 1 wk walk /activity to tolerance avoid constipation MOM or Miralax as needed Stand Alone Forms: Nursing Discharge Form Referrals: Bethel Oates [employer]ERTER [Primary Care Provider] - 10/11/18 1:30 pm Activity:: Activity as Tolerated Equipment/Supplies:: No Equipment Needed Diet:: low fiber x 1 wk Discharge Orders Discharge Orders: Discharge Order (Routine); Ordered 09/28/18 Ordered By: Marcella Foster Discharge Data Discharge Date/Time-TO BE ENTERED AT DEPARTURE: 09/28/18 10:35 DS: Data Vitals/I&O Vitals and I&O: Vital Signs Temperature 36.3 C L 09/28/18 07:20 Temperature Source Tympanic 09/28/18 07:20 Pulse 57 L 09/28/18 07:20 Pulse Rhythm Regular 09/28/18 07:41 Respiratory Rate 17 09/28/18 07:20 Respiratory Effort 09/28/18 07:41 Respiratory Depth Normal 09/28/18 07:41 Respiratory Pattern Normal 09/28/18 07:41 Blood Pressure 125/82 09/28/18 07:20 Blood Pressure Position Sitting 09/25/18 21:54 Pulse Oximetry 100 09/28/18 07:20 Oxygen Delivery Method Room Air 09/28/18 07:20 Oxygen Flow Rate 0 09/28/18 07:20 Pain Level 2 09/27/18 11:15 Intake & Output 09/27/18 09/27/18 09/28/18 11:59 23:59 11:59 Intake Total 1281.25 / 2940.00 1658.75 / 2940.00 1710.417 / 1710.417 Output Total 250 / 1150 900 / 1150 Balance 1031.25 / 1790.00 758.75 / 1790.00 1710.417 / 1710.417 Weight 73.4 kg 74.8 kg Intake: IV 1281.25 / 2100.00 818.75 / 2100.00 1020.417 / 1020.417 Oral 840 / 840 690 / 690 Output: Gastric Drainage 250 / 250 Left Nare 250 / 250 Stool 900 / 900 Other: Urine Color Pale Pale Pale Yellow Yellow Urine Appearance Clear Clear Clear Urine Odor None None None Comment Patient voiding independantly Voiding independantly Stool Size Copious Small Stool Characteristics Liquid Liquid Brown Voiding Methods Toilet Toilet Toilet [facility] Medical History Partial small bowel obstruction (Acute) Carpal tunnel syndrome Endometriosis uterine fibroids Surgical History History of Joie fundoplication (Chronic) Vaginal hysterectomy Social History Smoking/Tobacco Use Status: Never Alcohol Intake: never Drug use: Never Do you feel safe at home: Yes Do you feel safe in your relationship?: Yes
--- NOTE | 2018-09-28 09:52 | W.PM.PROGNOT ---
Date of Service Date of service: 09/28/18 Time of Service: 09:52 Assessment and Plan (1) Partial small bowel obstruction: Current visit: No Status: Acute Subjective Interval history since last seen: Pt is doing well. no headaches. No CP or SOB. no productive cough. no dysuria. no leg pain or swelling. no abdom pain. tolerating po's. lg amount of liquid stool. Exam Const General: cooperative, healthy appearing, comfortable, no acute distress, well developed and well groomed Nutritional Appearance: average body habitus and well nourished Orientation: alert, awake and oriented x3 HENMT Head: normal to inspection, normocephalic and atraumatic Ears: hearing grossly normal bilaterally and external ears normal General nose exam: external nose normal Face and sinus: normal facial exam and sinuses nontender Mouth: oral mucosae normal, lip normal, tongue normal and moist mucous membranes Teeth and gingiva: dentition normal Eyes General: appearance normal, both eyes and all related structures Conjunctivae: conjunctivae normal Sclera: sclerae normal Pupils: PERRL Neck Neck: normal visual inspection and full ROM Chest Chest: normal inspection of the chest Resp Effort & Inspection: normal respiratory effort, able to speak in complete sentences, no cough, no nasal flaring, not tachypneic and no use of accessory muscles Auscultation: clear to auscultation bilaterally, no rales, no rhonchi and no wheezes Cardio Jugular venous pressure: no JVD Rate: regular rate Rhythm: regular rhythm GI Inspection: normal to inspection, no edema and non-distended Palpation: soft, no masses, nontender and No ascites Auscultation: normal bowel sounds Other: no pain post sx changes noted. no hernias Skin General skin exam: no rashes or lesions noted Trauma: no lacerations or abrasions Neuro General: alert, oriented x3, oriented, gait normal, moves all extremities, no focal motor deficits and CN's II-XI intact bilaterally Cognition: normal cognition Speech: speech normal Gait: normal gait Motor: muscle tone normal throughout Extrem General: normal to inspection, full ROM and no clubbing, cyanosis or edema Psych Appearance: grossly normal and well kempt Mental Status: mental status grossly normal Speech and Movement: speech and movement normal Affect: normal affect Objective Objective Clinical Data: Vital Signs Temperature 36.3 C L 09/28/18 07:20 Temperature Source Tympanic 09/28/18 07:20 Pulse 57 L 09/28/18 07:20 Pulse Rhythm Regular 09/28/18 07:41 Respiratory Rate 17 09/28/18 07:20 Respiratory Effort 09/28/18 07:41 Respiratory Depth Normal 09/28/18 07:41 Respiratory Pattern Normal 09/28/18 07:41 Blood Pressure 125/82 09/28/18 07:20 Blood Pressure Position Sitting 09/25/18 21:54 Pulse Oximetry 100 09/28/18 07:20 Oxygen Delivery Method Room Air 09/28/18 07:20 Oxygen Flow Rate 0 09/28/18 07:20 Pain Level 2 09/27/18 11:15 Intake & Output 09/27/18 09/27/18 09/28/18 11:59 23:59 11:59 Intake Total 1281.25 / 2940.00 1658.75 / 2940.00 1710.417 / 1710.417 Output Total 250 / 1150 900 / 1150 Balance 1031.25 / 1790.00 758.75 / 1790.00 1710.417 / 1710.417 Weight 73.4 kg 74.8 kg Intake: IV 1281.25 / 2100.00 818.75 / 2100.00 1020.417 / 1020.417 Oral 840 / 840 690 / 690 Output: Gastric Drainage 250 / 250 Left Nare 250 / 250 Stool 900 / 900 Other: Urine Color Pale Pale Pale Yellow Yellow Urine Appearance Clear Clear Clear Urine Odor None None None Comment Patient voiding independantly Voiding independantly Stool Size Copious Small Stool Characteristics Liquid Liquid Brown Voiding Methods Toilet Toilet Toilet Laboratory Results WBC 5.46 k/cumm (4.4-10.8) 09/27/18 06:15 RBC 4.48 m/cumm (4.00-5.20) 09/27/18 06:15 Hgb 12.8 g/dL (12.0-15.5) D 09/27/18 06:15 Hct 39.9 % (36.0-46.0) 09/27/18 06:15 MCV 89.1 fL (80-95) 09/27/18 06:15 MCH 28.6 pg (27.0-33.0) 09/27/18 06:15 MCHC 32.1 g/dL (32.0-36.0) 09/27/18 06:15 RDW 12.6 % (11.7-14.6) 09/27/18 06:15 Plt Count 205 x1000/uL (130-400) 09/27/18 06:15 MPV 10.2 fL (8.0-11.0) 09/27/18 06:15 Immature Gran % 0.2 09/27/18 06:15 Neutrophils % 61.4 09/27/18 06:15 Lymphocytes % 25.3 09/27/18 06:15 Monocytes % 9.0 09/27/18 06:15 Eosinophils % 3.7 09/27/18 06:15 Basophils % 0.4 09/27/18 06:15 Absolute Neutrophils 3.36 k/cumm (1.2-6.7) 09/27/18 06:15 Absolute Lymphocytes 1.38 k/cumm (1.2-3.4) 09/27/18 06:15 Absolute Monocytes 0.49 k/cumm (0.11-0.7) 09/27/18 06:15 Absolute Eosinophils 0.20 k/cumm (0.0-0.7) 09/27/18 06:15 Absolute Basophils 0.02 k/cumm (0.0-0.2) 09/27/18 06:15 Sodium 146 mmol/L (136-145) H 09/27/18 06:15 Potassium 3.8 mmol/L (3.5-5.1) 09/27/18 06:15 Chloride 110 mmol/L (98-107) H 09/27/18 06:15 Carbon Dioxide 29.0 mmol/L (21.0-32.0) 09/27/18 06:15 Anion Gap 7.0 mmol/L (3-11) 09/27/18 06:15 BUN 12 mg/dL (7-18) 09/27/18 06:15 Creatinine 0.80 mg/dL (0.55-1.02) 09/27/18 06:15 Estimated GFR/1.73 m2 >= 60.00 (mL/min/1.73m2) 09/27/18 06:15 Glucose 81 mg/dL (70-100) 09/27/18 06:15 Calcium 7.9 mg/dL (8.5-10.1) L 09/27/18 06:15 Magnesium 1.7 mg/dL (1.8-2.4) L 09/27/18 06:15 Total Bilirubin 1.4 mg/dL (0.2-1.0) H 09/25/18 22:10 AST 19 U/L (15-37) 09/25/18 22:10 ALT 29 U/L (12-78) 09/25/18 22:10 Alkaline Phosphatase 83 U/L (46-116) 09/25/18 22:10 Total Protein 7.8 g/dL (6.4-8.2) 09/25/18 22:10 Albumin 4.3 g/dL (3.4-5.0) 09/25/18 22:10 Lipase 175 U/L (73-393) 09/25/18 22:10
--- NOTE | 2018-09-28 16:47 | PDOC.CMDIS ---
- If Service Date Differs Date of service: 09/28/18 Time of Service: 16:47 LACE Index Scoring Tool - Questions: Length of Stay (in days): 4 - 6 Acuity (Admit via E.D.?): Yes E.D. Visits: 2 - Answers: Total Score: 9 Risk of Readmission: Low Risk Care Management Discharge Reason for Hospitalization: Bowel obstruction Discharge Plan: Karime is being discharged home today. She is ambulating frequently, she has a large bowel movement and tolerating oral intake. She will follow up with her provider as directed and no other services needed at this time. Karime states she feels ready to return home. Patient/Family Education Needs: Discharge education, limitations and follow up plan of care including ask me three and self management including diet recomendations.
== END 2018-09-28 10:35 | disposition home or self-care (01) | DRG 389 ==
LOC: ER 23:26 → MS 23:57
PROVIDERS: Surgery; Admitting Provider Surgery; Emergency Provider Student in an Organized Health Care Education/Training Program; PCP Nurse Practitioner Family; Visit Provider Surgery
DX: K56.600 Partial intestinal obstruction, unspecified as to cause (principal); R18.8 Other ascites; Z98.890 Other specified postprocedural states
CPT/HCPCS: 36415; 80048; 80053; 83690; 96361; 96374; 96375; 99222; 99232; 99238; 99285; J1650; 74019; 74177; 83735; 85025; 99284; G0378; J1885; J2060; J2405; J3490

== ENCOUNTER 2018-10-08 17:16 | Emergency (ER) | payer BC, SELFPAY ==
[2018-10-08 17:19] VITALS: BP 113/85; PULSE 89; RESP 16; TEMP 36.9; O2SAT 97
[2018-10-08] MEDS: Ibuprofen 800 MG TAB PO (17:34)
[2018-10-08] MEDS: Acetaminophen 500 MG TAB 1000 MG PO (17:34)
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
--- NOTE | 2018-10-08 18:39 | ED.GENADUL_ITS ---
Discharge Plan Disposition Patient Disposition: HOME Condition: Good Discharge Details Chief Complaint: Orthopedic Clinical Impression: Left knee sprain Primary Care Provider: Bethel Oates ED Provider: Naif Frank Home Meds and New Rx's Prescriptions: No Action multivitamin with minerals 1 EACH tablet 1 ea PO DAILY RF: 0 gabapentin 300 MG capsule 300 mg PO TID RF: 0 Discharge Instructions Instructions: Knee Sprain (ED) Additional Instructions: Your x-ray shows no evidence of significant fracture, however there is concern for a potential posterior cruciate ligament tear or avulsion. Please keep the knee immobilizer on at all times, and follow-up closely with orthopedics. If you notice any worsening of your symptoms, or any new symptoms such as vomiting, diarrhea, fever, chills, shortness of breath, chest pain, numbness, weakness, or fainting , please return immediately to the emergency department for reevaluation. Please follow up with your primary care provider as soon as possible for reassessment and reevaluation. As always, it was a pleasure participating in your medical care today. Referrals: Bethel Oates, SUPERVISOR SCREEN MAKING [Primary Care Provider] - Discharge Data Discharge Date/Time-TO BE ENTERED AT DEPARTURE: 10/08/18 19:06 Medical Decision Making This is a pleasant 48-year-old female who presents for evaluation of left knee pain. She is out biking and came to a quick stop by putting out her left leg, subsequently hearing a pop and having notable left knee pain. Exam demonstrates posterior popliteal knee pain, as well as slight proximal gastrocnemius pain. Exam demonstrates no significant laxity but there is notable pain on posterior drawer testing, and Salvador's test. Neurovascular exam is normal, sensation is normal, strength is intact for flexion and extension of the knee, in conjunction for plantar dorsiflexion. I do suspect that she had a mild tear of her soleus muscle, with the location of the proximal gastrocnemius pain, however with the hearing of a pop, as well as the posterior popliteal pain and pain with posterior drawer test I am concerned for potential ligamentous damage. X-ray was ordered does demonstrate a small calcification in the posterior joint recess, concerning for potential bony avulsion of the PCL. This would seem to correlate well clinically with her exam. With an otherwise stable exam, no signs of severe knee instability, I do feel that she can be safely discharged home but does require close orthopedic follow-up. We will place her in a knee immobilizer, schedule orthopedic follow-up, maintain nonweightbearing status, recommend continued NSAIDs and ice for home use. I have extensively reviewed the treatment plan and discharge instructions with the patient and their family. I have addressed all patient concerns at this time. The patient and family was made aware of what symptoms to monitor for that would warrant a return to the emergency department. Discussed the plan with the patient and family, they demonstrate verbal understanding and agreement with our assessment and plan at this time. FINDINGS: Bones/joints: No fracture. Normal alignment. No blastic or lytic lesions. No periostitis or osteolysis. Small joint effusion distending the suprapatellar bursa. Joint spaces are well- maintained. There is a miniscule 2 mm calcification projecting in the posterior joint recess distribution on the lateral view only which is not evident on the comparison radiographs from 08/24/2014. Is not identified on the other views for medial versus lateral localization. This could represent a small capsular avulsion fragment or small avulsion at the PCL attachment. No associated macro fracture is identified in this region. Soft tissues: No gross soft tissue abnormalities. No foreign bodies. IMPRESSION: 1. No macro fractures. No dislocation. 2. Small joint effusion. 3. 2 mm calcification projecting in the posterior joint recess which is new since the 2014. This could represent a small intra-articular calcific body, versus a small posterior capsular avulsion fragment or minimal bony avulsion at the tibial attachment of PCL. If there is clinical concern for destabilizing internal derangement of the knee, consider followup MRI evaluation. Thank you for allowing us to participate in the care of your patient. Dictated and Authenticated by: Ace Smith MD 10/08/2018 6:20 PM Eastern Time ([place] & [place]) HPI General Date/Time Provider Initiated Documentation: 10/08/18 17:17 . HPI Narrative: This is a pleasant 48-year-old female who presents today for evaluation of left knee pain. Patient states that she was out biking, came to a stop and to stop quickly she put her left leg out, she had sudden force on her foot, and at that time heard a pop in her knee and is created notable pain. Happened roughly 1 hour prior to arrival. He has not taken any NSAIDs or other intervention prevention for the pain. Pain is made worse with movement, notable pain with ambulation. She denies any radiation of the pain in her thigh or calf. She denies any numbness or tingling. She denies any other associated symptoms or modifying factors. She denies any recent surgeries, IV or illicit drug use or pertinent family history. She does admit to previous injury to the knee in the past but no prior surgeries. Related Data Home Medications Medication Instructions Recorded Confirmed multivitamin with minerals 1 ea PO DAILY 06/22/14 09/25/18 gabapentin 300 mg PO TID 08/29/17 09/25/18 Allergies Allergy/AdvReac Type Severity Reaction Status Date / Time Penicillins Allergy Unknown unknown Unverified 09/25/18 21:59 General Stated Complaint: Orthopedic JERICA: 3 Review of Systems Review of Systems All systems reviewed & are unremarkable except as noted in HPI and below PFSH Social History Smoking/Tobacco Use Status: Never Alcohol Intake: never Drug use: Never Do you feel safe at home: Yes Do you feel safe in your relationship?: Yes Exam Narrative Exam Narrative: 1.Const: Well-nourished, Well-developed, appearing stated age 2.Eyes: PERRL, no conjunctival injection, and symmetrical lids. 3.ENT: Atraumatic external nose and ears. Moist MM. Neck: Symmetric, trachea midline, No thyromegaly. 4.CVS: +S1/S2, No murmurs or gallops. Peripheral pulses 2+ and equal in all extremities. Brisk capillary refill in all extremities. 5.RESP: Unlabored respiratory effort. Clear to auscultation bilaterally. No wheezes rales or rhonchi 6.GI: Soft, Nontender/Nondistended, No hepatosplenomegaly. No guarding or rebound. 7.MSK: Left knee: The knee is stable to varus, valgus, and anterior drawer stress. Posterior drawer test elicits no significant laxity but does elicit mild to moderate pain. No deformity. Patellar grind test is negative. Salvador test is notably positive for pain both laterally and medially. No ttp to the patella, tibial plateau, or fibular head. Mild reproducible pain over the posterior popliteal space. As well as mild pain over the proximal gastrocnemius. Normal strength for plantar dorsiflexion. No evidence of Achilles tendon rupture, or atypical muscle body component of the gastrocnemius. No significant bruising. Capillary refill brisk in all toes. 8.Skin: Warm, Dry. No rashes or lesions. 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 Sensation grossly intact, no focal neurologic deficits. 10.Psych: (AAO) x3. Appropriate mood and affect Course Vital Signs Temperature 36.9 C 10/08/18 17:19 Pulse 89 10/08/18 17:19 Respiratory Rate 16 10/08/18 17:19 Blood Pressure 113/85 10/08/18 17:19 Pulse Oximetry 97 10/08/18 17:19 Temperature 36.9 C 10/08/18 17:19 Temperature Source Temporal Artery Scan 10/08/18 17:19 Pulse 89 10/08/18 17:19 Respiratory Rate 16 10/08/18 17:19 Respiratory Effort Non-Labored 10/08/18 17:25 Blood Pressure 113/85 10/08/18 17:19 Blood Pressure Position Supine 10/08/18 17:19 Pulse Oximetry 97 10/08/18 17:19 Oxygen Delivery Method Room Air 10/08/18 17:19 Oxygen Flow Rate 0 10/08/18 17:19
== END 2018-10-08 19:06 | disposition home or self-care (01) ==
PROVIDERS: Emergency Provider Student in an Organized Health Care Education/Training Program; PCP Nurse Practitioner Family
DX: S83.92XA Sprain of unspecified site of left knee, initial encounter (principal); V18.0XXA Pedal cycle driver injured in noncollision transport accident in nontraffic accident, initial encounter
CPT/HCPCS: 29505; 73562; 99283; 99282; E0114; L1830

== ENCOUNTER 2018-12-13 11:52 | Outpatient (REF) | payer BC, SELFPAY | END 2018-12-13 12:12 | LOC: NCHCN 11:52 | PROVIDERS: PCP Nurse Practitioner Family; Visit Provider Nurse Practitioner Family | DX: Z00.00 Encounter for general adult medical examination without abnormal findings (principal); N89.8 Other specified noninflammatory disorders of vagina | CPT/HCPCS: 87086; 87480; 87510; 87660 ==

== ENCOUNTER 2019-01-12 08:37 | Outpatient (REF) | payer BC, SELFPAY | END 2019-01-12 08:57 | LOC: NCHCN 08:37 | PROVIDERS: PCP Nurse Practitioner Family; Visit Provider Nurse Practitioner Family | DX: N89.8 Other specified noninflammatory disorders of vagina (principal); R30.0 Dysuria | CPT/HCPCS: 87480; 87510; 87660 ==

== ENCOUNTER 2019-02-06 11:45 | Outpatient (REF) | payer BC, SELFPAY ==
[2019-02-07 14:31] LABS: GC Result Negative (Negative); Specimen Description CERVIX
[2019-02-07 15:45] LABS: Chlamydia Result Positive (Negative)
== END 2019-02-06 12:05 ==
LOC: LBN 11:45
PROVIDERS: PCP Nurse Practitioner Family; Visit Provider Nurse Practitioner Women's Health
DX: Z11.3 Encounter for screening for infections with a predominantly sexual mode of transmission (principal)
CPT/HCPCS: 87491; 87591

== ENCOUNTER 2019-03-20 10:42 | Outpatient (REF) | payer BC, SELFPAY ==
[2019-03-21 13:15] LABS: Chlamydia Result Negative (Negative)
[2019-03-21 15:27] LABS: GC Result Negative (Negative)
== END 2019-03-20 11:02 ==
LOC: LBN 10:42
PROVIDERS: PCP Nurse Practitioner Family; Visit Provider Nurse Practitioner Women's Health
DX: N94.9 Unspecified condition associated with female genital organs and menstrual cycle (principal); Z11.3 Encounter for screening for infections with a predominantly sexual mode of transmission
CPT/HCPCS: 87491; 87591; 87480; 87510; 87660

== ENCOUNTER 2019-06-20 19:22 | Emergency (ER) | payer BC, SELFPAY ==
[2019-06-20 19:28] VITALS: BP 143/88; PULSE 87; RESP 18; TEMP 36.6; O2SAT 99
--- NOTE | 2019-06-20 19:39 | ED.GENADUL_ITS ---
Discharge Plan Disposition Patient Disposition: HOME Condition: Improving Discharge Details Chief Complaint: Urinary Clinical Impression: UTI (urinary tract infection) Primary Care Provider: Bethel Oates ED Provider: Anthony Izquierdo Home Meds and New Rx's Prescriptions: New sulfamethoxazole-trimethoprim [Bactrim DS] 800-160 mg tablet 1 tab PO BID 5 Days Qty: 14 RF: 0 Continued ibuprofen 200 mg capsule 600 mg PO TID-QID PRNRF: 0 amitriptyline 150 mg tablet 150 mg PO DAILY RF: 0 estradiol 0.01 % (0.1 mg/gram) cream 1 gm VG DAILY Qty: 42.5 RF: 2 multivitamin with minerals 1 EACH tablet 1 ea PO DAILY RF: 0 gabapentin 300 MG capsule 300 mg PO TID RF: 0 Discharge Instructions Instructions: Urinary Tract Infection in Women (ED) Additional Instructions: Home to rest. Small, frequent sips of fluids to maintain hydration. Please take antibiotics as prescribed. May use Pyridium, as needed to ease urinary burning and discomfort. Return if you develop a fever, back pain, or any other acute concerns. Please follow-up with Bethel Oates in clinic if not improving in 3 to 5 days time. Referrals: Bethel Oates, TABLEAU ARCHITECT [Primary Care Provider] - Medical Decision Making <Calin Molina MD - Last Filed: 06/20/19 19:52> 48-year-old female presents from home with day 2 of urinary urgency, frequency, burning with urination and did note of blood tinged urine this evening. She has not had back pain, no fever, the pain has been located in the suprapubic region, has not moved, nor has it been colicky. Her vital signs are unremarkable, her exam is reassuring. Urinalysis is pending. I will sign the case out to Dr. Izquierdo with prescriptions for presumptive UTI. Please see his note regarding final impression. <Anthony Izquierdo MD - Last Filed: 06/20/19 20:25> Patient had presented with urinary symptoms and seen initially by Dr. Molina. Please see his initial note for details. Patient signed out to me pending urinalysis. This is returned positive for blood and leukocyte Estrace. On micro she has greater than 50 red cells, 5-10 white cells, few bacteria. Symptoms most consistent with UTI and not kidney stone. She has no back or flank pain. She has no fever or systemic illness. Will start treatment for UTI as per Dr. Molina's plan. Bactrim and Pyridium ordered. Follow-up with primary care next week if not better. Return to ED for fever, vomiting, flank pain, other concerns or problems. Lab Data Lab results reviewed: Yes I reviewed the patient's lab results. HPI <Calin Molina MD - Last Filed: 06/20/19 19:52> General Mode of arrival: ambulatory . Date/Time Provider Initiated Documentation: 06/20/19 19:28 . Limitations to Documentation: no limitations . Information obtained by: patient . History of Present Illness 48 year old F presents to the emergency department with the chief complaint of Due to of urinary frequency, urgency, burning with urination, bloody urine , described as mild, Quality is described as dull, and is localized to the abdomen and pelvis. Patient reports no radiation. Patient started experiencing this hour(s) and it has been constant. No relieving factors improve symptom(s), No exacerbating factors reported . Patient notes denies fever/chills and nausea/vomiting. Patient did receive the following treatments prior to arrival, none Related Data Home Medications Medication Instructions Recorded Confirmed multivitamin with minerals 1 ea PO DAILY 06/22/14 06/20/19 gabapentin 300 mg PO TID 08/29/17 06/20/19 ibuprofen 200 mg capsule 600 mg PO TID-QID PRN cap 10/18/18 06/20/19 amitriptyline 150 mg tablet 150 mg PO DAILY 02/06/19 06/20/19 estradiol 1 gm VG DAILY #42.5 gm 02/06/19 06/20/19 sulfamethoxazole-trimethoprim 1 tab PO BID 5 Days #14 tab 06/20/19 [Bactrim DS] Previous Rx's Medication Instructions Recorded estradiol 1 gm VG DAILY #42.5 gm 02/06/19 sulfamethoxazole-trimethoprim 1 tab PO BID 5 Days #14 tab 06/20/19 [Bactrim DS] Allergies Allergy/AdvReac Type Severity Reaction Status Date / Time Penicillins Allergy Unknown unknown Verified 06/20/19 19:37 General Stated Complaint: GenMedical JERICA: 4 Review of Systems <Calin Molina MD - Last Filed: 06/20/19 19:52> Narrative: 4 systems reviewed and otherwise negative. No vaginal bleeding or discharge, status post hysterectomy. No back pain. The pain has not been colicky. PFSH <Calin Molina MD - Last Filed: 06/20/19 19:52> Medical History Carpal tunnel syndrome Partial small bowel obstruction (Acute) Social History Smoking/Tobacco Use Status: Never Alcohol Intake: never Drug use: Never Do you feel safe at home: Yes Do you feel safe in your relationship?: Yes Female Reproductive History Menstrual Menopause type: surgical Exam <Calin Molina MD - Last Filed: 06/20/19 19:52> Narrative Exam Narrative: GEN: awake, alert, oriented 3. Pleasant, well groomed, interactive. HEAD: Normocephalic, atraumatic EYES: PERRL, EOMI NECK: Full ROM, no GENEVIEVE, no menigismus CHEST/RESP: Nontender, clear to auscultation bilateral, no wheeze/rhonchi/rales CARDIOVASCULAR: RRR, no murmur, rub jean carlos. 2+ Rad pulse bilateral ABDOMEN: Soft, nontender, no mass. +Bowel sounds EXT: Full ROM, no edema, no rash Neuro: Grossly normal neurologic exam, conversant, interactive. Psych: Speech fluent, thoughts congruent, affect normal Course <Calin Molina MD - Last Filed: 06/20/19 19:52> Vital Signs Vital signs: Vital Signs Temperature 36.6 C 06/20/19 19:28 Pulse 87 06/20/19 19:28 Respiratory Rate 18 06/20/19 19:28 Blood Pressure 143/88 H 06/20/19 19:28 Pulse Oximetry 99 06/20/19 19:28 Temperature 36.6 C 06/20/19 19:28 Temperature Source Oral 06/20/19 19:28 Pulse 87 06/20/19 19:28 Respiratory Rate 18 06/20/19 19:28 Respiratory Effort Non-Labored 06/20/19 19:33 Blood Pressure 143/88 H 06/20/19 19:28 Pulse Oximetry 99 06/20/19 19:28 Oxygen Delivery Method Room Air 06/20/19 19:28 Oxygen Flow Rate 0 06/20/19 19:28 Pain Level 2 03/03/20 19:28 Sign Out <Calin Molina MD - Last Filed: 06/20/19 19:52> Sign Out Data: Sign Out Comment: followup UA Last updated by Calin Molina MD at 06/20/19 19:53
[2019-06-20 19:59] LABS: Bilirubin Negative (Negative); Blood Large (Negative); Clarity Cloudy (Clear); Glucose Negative (Negative); Ketones Negative (Negative); Leukocyte Esterase Small (Negative); Nitrite Negative (Negative); Specific Gravity 1.015 (1.005-1.025); Urobilinogen 0.2 EU/dL (Up TO 0.2); pH 6.5 (5-8)
[2019-06-20 20:18] LABS: Epithelial Cells Rare HPF (Negative); Other Cells Negative (Negative); RBC >50 HPF (0-2)
[2019-06-20 20:19] LABS: Bacteria Few HPF (Negative); C & S Indicated? Yes; Casts Negative LPF (Negative); Crystals Negative HPF (Negative); Mucus Negative (Negative)
[2019-06-20 20:26] VITALS: BP 140/80; PULSE 86; RESP 18; TEMP 36.6; O2SAT 99
[2019-06-20] MEDS: Sulfameth/Trimeth DS, 2 TABS/BTL 1 TAB PO (20:26)
[2019-06-20] MEDS: Phenazopyridine 100 MG TAB, 2 TABS/BTL PO (20:26)
--- NOTE | 2019-06-23 12:22 | ED.FU.B_ITS ---
Urine culture results today noted 10,000-50,000 colonies of E. coli. Sensitivity noted that organism resistant to Bactrim which patient was given. Discussed with patient over the phone and she states that her symptoms are improving but she still has some mild dysuria. She is allergic to penicillin. Patient requested additional Pyridium. Macrobid and Pyridium called into patient's pharmacy [facility] in [facility]. She was advised to stop taking the bactrim.
== END 2019-06-20 20:30 | disposition home or self-care (01) ==
PROVIDERS: Emergency Medicine; Emergency Provider Emergency Medicine; PCP Nurse Practitioner Family
DX: N39.0 Urinary tract infection, site not specified (principal); R10.30 Lower abdominal pain, unspecified
CPT/HCPCS: 87077; 99283; 81003; 81015; 87086; 87186

== ENCOUNTER 2020-09-06 10:27 | Outpatient (REF) | payer BC, SELFPAY ==
--- OUTSIDE RECORDS SUMMARY | 2020-09-06 10:33 | XMS_ITS ---
:1970 External Reference #:[id number] Author Care Team Providers Name Role Phone [facility] Primary Care Provider Unavailable Allergies Code Code System Name Reaction Severity Status Onset Penicillin ? ? Active ? Medications Name Status Start Date Stop Date ? ? acetaminophen 300 mg-codeine 30 mg Completed ? 07/21/2016 tablet Allergy 25 mg tablet Active ? Not availab le Take 2 tablets every 4 hours by oral route. Ascomp with Codeine 30 mg-50 mg-325 Active ? Not available mg-40 mg capsule fluconazole 150 mg tablet Completed ? 2016 gabapentin 100 mg capsule Completed ? 2016 gabapentin 300 mg capsule Active ? Not av ailable methylprednisolone 4 mg tablets in a Completed ? 07/21/2016 dose pack metronidazole 0.75 % topical gel Active ? Not available minocycline 100 mg capsule Completed ? 07/21 omeprazole 10 mg capsule,delayed release Active ? Not available Take 1 capsule every day by oral route. tramadol 50 mg tablet Completed ? 07/21/2016 Problems None recorded. Procedures Date Name Performed by ? 05/20/1991 Caesarean Section Information not avai lable ? Eye Surgery Information not avai lable ? Hysterectomy Information not avai lable ? Joie Fundoplication Information not av ailable ? Tubal Ligation Information not avai lable Results Lab Results None recorded. Past Encounters None recorded. Social History Tobacco Smoking Status Never Smoker Vaccine List Vaccine Type DTaP 06/17/2013 Plan of Care Reminders Provider Appointments None ? ? recorded. Lab None ? ? recorded. Referral None ? ? recorded. Procedures None ? ? recorded. Surgeries None ? ? recorded. Imaging None ? ? recorded. Vitals 01/27/2017 11:30AM ESTABLISHED PATIENT 15 Height Weight BMI 5 ft 4 in 174 lbs 16 oz 30 kg/m2 01/13/2017 11:30AM ESTABLISHED PATIENT 15 Height Weight BMI 5 ft 4 in 184 lbs 31.6 kg/m2 11/18/2016 12:45PM ESTABLISHED PATIENT 30 Height Weight BMI 5 ft 4 in 185 lbs 16 oz 31.9 kg/m2 11/04/2016 11:00AM ESTABLISHED PATIENT 30 Height Weight BMI 5 ft 4 in 186 lbs 16 oz 32.1 kg/m2 09/23/2016 11:30AM ESTABLISHED PATIENT 45 Height Weight BMI 5 ft 4 in 192 lbs 33 kg/m2 08/19/2016 11:30AM FOLLOW UP 60 Height Weight BMI 5 ft 4 in 199 lbs 16 oz 34.3 kg/m2 07/21/2016 11:30AM NEW PATIENT 60 Height Weight BMI Blood Pressure 5 ft 4 in 201 lbs 34.5 kg/m2 120/70 mm[Hg]
[2020-09-06 13:04] LABS: HGB 13.1 g/dL (11.2-15.7); MCH 28.4 pg (27.0-33.0); MCHC 32.8 % (32.0-36.0); MCV 86.8 fL (80-95); MPV 10.2 fL (8.0-11.0); Platelet Count 262 10^3/uL (130-400); RBC 4.61 10^6/uL (3.93-5.22); RDW-SD 38.5 fL; WBC 5.59 10^3/uL (4.4-10.8)
[2020-09-06 13:28] LABS: TSH (W/Ref FT4) 1.52 uIU/mL (0.36-3.74)
[2020-09-08 09:26] LABS: HIV-1/2 Ag & Ab Screen Negative (Negative)
[2020-09-09 10:32] LABS: Hepatitis C Ab w Rflx HCV PCR Negative (Negative)
== END 2020-09-06 10:28 | disposition home or self-care (01) ==
LOC: NCHCN 10:27
PROVIDERS: PCP Nurse Practitioner Family; Visit Provider Nurse Practitioner Family
DX: N95.1 Menopausal and female climacteric states (principal); Z78.0 Asymptomatic menopausal state; Z11.4 Encounter for screening for human immunodeficiency virus [HIV]; Z11.59 Encounter for screening for other viral diseases
CPT/HCPCS: 85027; 86803; 87389; 84443

== ENCOUNTER 2021-04-28 10:56 | Outpatient (REF) | payer BC, SELFPAY ==
--- NOTE | 2021-04-28 10:30 | PAPFT_PTH ---
PATIENT: Karime Finn LOC: [facility]#:[id number] AGE/SX: 50/F ROOM: RE04/28/[address]: Bethel Oates : 1970 BED: DIS: 04/28/2021 SPEC #: [id number] RECD: 04/28/21 17:38 STATUS: FAITH REQ #: [id number] RUPESH: 04/28/21 10:[address]: Bethel Oates DEPT: [facility] Cytology RECD BY: Marry Lechuga Tissues: 1 - CX/ENDOCX FOR PAP SMEARS Procedures: PAP THIN PREP/UVM Screening HPV DNA PROBE Comments: [id number]
== END 2021-04-28 10:57 | disposition home or self-care (01) ==
LOC: NCHCN 10:56
PROVIDERS: PCP Nurse Practitioner Family; Visit Provider Nurse Practitioner Family
DX: Z12.4 Encounter for screening for malignant neoplasm of cervix (principal); Z11.51 Encounter for screening for human papillomavirus (HPV)
CPT/HCPCS: 88142; 87624

== ENCOUNTER 2021-07-01 00:46 | Outpatient (CLI) | payer BC, SELFPAY ==
--- NOTE | 2021-07-01 08:00 | DI.MAMMO_ITS ---
Exam(s) MAMMO SCREENING EXAM: MAMMO SCREENING CLINICAL HISTORY: SCREENING, Z12.39 TECHNIQUE: Mammograms were interpreted according to the usual protocol including computer analysis w slinkset CAD system, tomosynthesis and C-view imaging. COMPARISON: 2017 and 2018 FINDINGS: The breasts are composed of scattered fibroglandular densities, Breast Density category B. No suspicious masses or suspicious microcalcifications are seen. No skin thickening or abnormal axillary lymph nodes are seen. There has been no significant change from prior exams. IMPRESSION: BI-RADS Category 1, Negative mammogram Yearly screening mammography is recommended. Breast Density - Category B, scattered fibroglandular densities. A negative radiographic report should not delay biopsy if a dominant or clinically suspicious mass is present. Up to ten percent of cancers are not identified on mammography. A negative report may reinforce clinical impression. Adenosis and dense breasts may obscure an underlying neoplasm. False positive reports average 6 to 10%. Patient will receive a letter notifying them of these results.
== END 2021-07-01 01:06 ==
PROVIDERS: PCP Nurse Practitioner Family; Visit Provider Nurse Practitioner Family
DX: Z12.31 Encounter for screening mammogram for malignant neoplasm of breast (principal)
CPT/HCPCS: 77063; 77067

== ENCOUNTER 2021-09-03 15:06 | Outpatient (REF) | payer BC, SELFPAY ==
[2021-09-03 16:54] LABS: ALT 29 U/L (14-59); AST 23 U/L (15-37); Albumin 3.5 g/dL (3.4-5.0); Alkaline Phosphatase 102 U/L (46-116); Anion Gap 7.1 mmol/L (3-11); BUN 12 mg/dL (7-18); Bilirubin, Total 0.5 mg/dL (0.2-1.0); CO2 27.9 mmol/L (21.0-32.0); CREATININE 0.9 mg/dL (0.55-1.02); Calcium 8.4 mg/dL (8.5-10.1); Chloride 104 mmol/L (98-107); Glucose 106 mg/dL (74-106); Potassium 3.5 mmol/L (3.5-5.1); Sodium 139 mmol/L (136-145); Total Protein 6.6 g/dL (6.4-8.2)
== END 2021-09-03 15:07 | disposition home or self-care (01) ==
LOC: LBN 15:06
PROVIDERS: PCP Nurse Practitioner Family; Visit Provider Physician Assistant Medical
DX: U07.1 COVID-19 (principal)
CPT/HCPCS: 80053

== ENCOUNTER 2022-04-09 09:49 | Day surgery (SDC) | payer BC, SELFPAY ==
--- NOTE | 2022-04-08 20:38 | W.PM.DSUDISC ---
Date of service: 04/09/22 Time of Service: 11:52 Discharge Plan Disposition Patient Disposition: Home Condition: Good Discharge Details Reason For Visit: Screening colonoscopy Attending Provider: Mehran Mendosa Primary Care Provider: Tonya Reveles Home Meds and New Rx's Prescriptions: Continued ibuprofen 200 mg capsule 600 mg PO TID-QID PRN multivitamin with minerals 1 EACH tablet 1 ea PO DAILY celecoxib [Celebrex] 100 mg capsule 100 mg PO BID metronidazole 0.75 % cream 1 applic topical BID Magnesium (oxide/AA chelate) 300 mg capsule 1 cap PO DAILY [id number] mg capsule 1 cap PO BID PRN loratadine 10 mg tablet 10 mg PO DAILY PRN gabapentin 300 MG capsule 300 mg PO TID Discontinued polyethylene glycol 3350 17 gram/dose powder 238 g PO ONCE Qty: 238 0RF Rx Instructions: take per colonoscopy instructions bisacodyl [Dulcolax (bisacodyl)] 5 mg tablet,delayed release (DR/EC) 5 mg PO ONCE Qty: 4 0RF Rx Instructions: take per colonoscopy instructions Discharge Instructions Additional Instructions: 1. If tolerated, consume a soft, low fiber diet for 1-2 days. 2[address] Do not drive, drink alcohol, operate machinery, make critical decisions, or do activities that require coordination or balance for 24 hours. 3. Because air was put into your colon during the procedure, expelling air from your rectum (passing gas or farting) is normal. 4. You may not have a bowel movement for 1-3 days because of the colonoscopy prep. This is normal. 5. Go directly to the emergency room if you notice any of the following: Develop chills (warm to touch), or if you have a thermometer and your temperature is above 101 Difficulty breathing or difficultly swallowing Persistent vomiting Severe abdominal pain, other than gas cramps Severe chest pain Black, tarry stools Any bleeding ? exceeding one tablespoon 6. Call your physician if the site where your intravenous was started becomes red, swollen, painful, and warm to touch. 7. Your physician has reviewed your pre-procedure medications. Please continue to take those medications as previously ordered. You will be given specific information/education regarding any changes to your medications before leaving. Activity:: Activity as Tolerated Diet:: As Tolerated Discharge Orders Discharge Orders: Discharge Order (Routine); Ordered 12/22/22 Ordered By: Mehran Mendosa DS: Diagnosis Discharge Diagnosis (1) Screening for colon cancer: Status: Acute Asessment and Plan: Your colonoscopy was normal. There are no signs of any polyps. You should follow-up with another one in 10 years.
--- NOTE | 2022-04-08 20:40 | W.COLOREPORT ---
Date of service: 04/09/22 Time of Service: 11:54 Colonoscopy Report Date of procedure: 04/09/22 Pre-op diagnosis general: screening colonoscopy Post-op diagnosis procedure note: same Procedure: colonoscopy Surgeon: Mehran Mendosa Anesthesia Type: General:No Airway Estimated blood loss (mL): 0 Pathology: none sent Complications: None Disposition: same day Indications: Karime is a 51 year old woman who is presenting for her second colonoscopy. She had one 10 years ago as part of the work up for irritable bowels. This one is for colorectal cancer screening Prep: Miralax/Dulcolax Procedure Start Time: 11:29 Procedure End Time: 11:44 Retraction Time: 8 Findings: Normal colonoscopy Procedure Description: After the induction of monitored anesthetic care, and with the patient in left lateral decubitus position, I began by performing an external anorectal exam.? Perineum and skin were normal, as was the anal verge.? There was no evidence of external hemorrhoids.? Next, I performed a digital rectal exam.? I did not appreciate any abnormal findings.? Next, I advanced a colonoscope into the rectal vault.? I performed retroflexion.? This was normal.? Using insufflation, I then advanced the colonoscope beyond the rectal folds and into the sigmoid colon before advancing towards the cecum.? The quality of the prep was excellent.? The scope was noted to be in the cecum by identification of the ileocecal valve and appendiceal orifice.? I then began withdrawing the colonoscope using repeated irrigation as necessary for full evaluation of the colonic mucosa. ?Once the scope was withdrawn to the level of the rectum, great care was taken to examine portions of the rectal folds.? There were no signs of any colon polyps or any other abnormalities. Finally, the scope was withdrawn and the patient was brought to the same-day surgery recovery unit as the anesthetic wore off. ?The findings and instructions were shared with the patient prior to discharge.
[2022-04-09 10:24] VITALS: BP 123/73; PULSE 84; RESP 16; TEMP 36.4; O2SAT 99
[2022-04-09] MEDS: Lactated Ringers 1,000 ML 80 ML IV (10:37)
--- NOTE | 2022-04-09 10:53 | W.ANESPRE ---
General Info Date of Service Date Performed: 04/09/22 Height: 5 ft 4 in Weight: 75.8 kg Body Mass Index (BMI): 28.6 Surgical Procedure: Operation Date: 04/09/22 11:20 Proposed Procedure Side Surgeon philipp Mendosa MD Meds Allergies and Home Medications Allergies Allergy/AdvReac Type Severity Reaction Status Date / Time Penicillins Allergy Unknown unknown Verified 03/26/22 15:08 Home Medication Medication Instructions Recorded multivitamin with minerals 1 ea PO DAILY 06/22/14 gabapentin 300 mg capsule 300 mg PO TID 08/29/17 ibuprofen 200 mg capsule 600 mg PO TID-QID PRN 10/18/18 celecoxib 100 mg capsule (Celebrex) 100 mg PO BID 12/17/21 rarfxkd-wsecdfulzw-TLJ-caffeine 30 1 cap PO BID PRN 12/17/21 mg-50 mg-325 mg-40 mg capsule magnesium oxide-magnesium amino 1 cap PO DAILY 12/17/21 acid chelate 300 mg capsule (Magnesium (oxide/AA chelate)) metronidazole 0.75 % topical cream 1 applic topical BID 12/17/21 loratadine 10 mg tablet 10 mg PO DAILY PRN 03/26/22 Current Visit Medications: Current Medications Generic Name Dose Route Start Last Admin Trade Name Freq PRN Reason Stop Dose Admin Hyoscyamine Sulfate 0.125 mg 04/08/22 20:42 Hyoscyamine 0.125 Mg Sl/Oral/Chew SL DIRECTED PRN Ringer's Solution 1,000 mls @ 80 mls/hr 04/09/22 06:00 04/09/22 10:37 IV 05/08/22 23:59 80 mls/hr INFUSION SRAVANTHI Administration IV Miscellaneous Supplies 1 each 04/09/22 06:00 Iv Access IV 05/08/22 23:59 DIRECTED SRAVANTHI Ondansetron HCl 4 mg 04/08/22 20:42 Ondansetron 4 Mg/2 Ml Vial IVP Q4H PRN PRN Nausea / Vomiting Sodium Chloride 0 ml 04/09/22 06:00 Normal Saline Flush 10 Ml Syr IV 05/08/22 23:59 PRN PRN Sodium Chloride 0 ml 04/09/22 06:00 Normal Saline 10 Ml Vial IJ 05/08/22 23:59 DIRECTED PRN Sterile Water 0 ml 04/09/22 06:00 Water,Injection,Sterile 10 Ml Vial IJ 05/08/22 23:59 DIRECTED PRN PFSH Active Problems Active Problems: Problem Status Onset Code Partial small bowel obstruction K56.600 Dyspareunia 09/21/12 Screening for colon cancer Z12.11 Skin lesions, generalized L98.9 Migraine G43.909 Acne L70.9 IBS (irritable bowel syndrome) K58.9 Medical History Medical History Adjustment disorder Carpal tunnel syndrome COVID-19 virus infection end of August 2021 Hip pain, left Hip pain, right Sleep disorder Small bowel obstruction Sore throat Surgical History Surgical History (Updated 04/09/22 @ 10:43 by Rosalba Lizarraga) History of carpal tunnel release Right (per pt) History of hysterectomy, supracervical 2011 History of Joie fundoplication S/P ACL repair L Tobacco Smoking/Tobacco Use Status: Never Alcohol Alcohol Intake: never Substance Use Substance use: Never Vital Signs and Lab Results Vital Signs Most Recent Vital Signs in EMR: Most Recent Vital Signs Temp Pulse Resp BP Pulse Ox 36.4 C L 84 16 123/73 99 04/09/22 10:24 04/09/22 10:24 04/09/22 10:24 04/09/22 10:24 04/09/22 10:24 Lab Results Blood Type / Crossmatch: No Data to Display Complete Blood Count: No Data to Display Complete Metabolic Panel: No Data to Display Liver Function Panel: No Data to Display Coagulation Panel: No Data to Display Cardiac Panel: No Data to Display Arterial Blood Gas: No Data to Display Venous Blood Gas: No Data to Display Pancreas Panel: No Data to Display Thyroid Panel: No Data to Display Infectious Disease: No Data to Display Blood Cultures: No Data to Display Toxicology Panel: No Data to Display Panel: No Data to Display Anesthesia Assessment and Plan Anesthesia History Personal History: PONV Family History: No Family History of Anesthesia Complications Exercise Tolerance Exercise Tolerance: Metabolic Equivalents>4 Pertinent Negatives Pertinent Negatives: No Symptoms of GERD, No Major Cardiovascular Symptoms or Complaints and No Major Pulmonary Symptoms or Complaints Cardiac & Pulmonary Exam Cardiac Exam: Normal S1/S2 Heart Sounds Pulmonary Exam: Clear Bilateral Breath Sounds Implantable Cardiac Device Does patient have a Pacemaker or an ICD?: No Airway Exam Known Difficult Airway: No Mallampati Class: 1 Mouth Opening: Normal (> 3cm) Thyromental Distance: Greater than 3 cm Neck Range of Motion: Full ROM Neck Circumference: Normal Teeth Condition: Normal Dentition ASA Classification ASA Score: ASA 2 Emergency Case?: No NPO Status NPO Status: NPO Clears >2 hours, Solids >8 hours Status Status: History of Hysterectomy Anesthesia Plan Resuscitation Status: Full Code Anesthesia Technique: General Anesthesia Airway Planned: Natural Airway Monitors Used: Standard Monitors
[2022-04-09 10:58] VITALS: BMI 28.6
[2022-04-09 11:55] VITALS: BP 124/73; PULSE 60; RESP 16; TEMP 36.1; O2SAT 98
--- NOTE | 2022-04-09 12:13 | W.ANESPOSTOP ---
Postoperative Evaluation Date, Time and Location Date Performed: 04/09/22 Time Performed: 12:13 Patient Location: Day Surgery Unit Vital Signs Most Recent Imported Vital Signs: Most Recent Vital Signs Temp Pulse Resp BP Pulse Ox 36.1 C L 60 16 124/73 98 04/09/22 11:55 04/09/22 11:55 04/09/22 11:55 04/09/22 11:55 04/09/22 11:55 Pain Score Most Recent Pain Score: Most Recent Pain Score Pain Level 0 04/09/22 11:55 Assessment Mental Status: Awake (Alert & Oriented to Patient Baseline) Airway and Respiratory Function: Patent airway with normal (patient baseline) respiratory exam Cardiovascular Function: Hemodynamically Stable Hydration Status: Adequately Hydrated Nausea & Vomiting: No Nausea or Vomiting Pain: Pt. Denies Any Pain Peripheral Nerve Block: Patient did not receive a nerve block
[2022-04-09 12:23] VITALS: BP 123/70; PULSE 61; RESP 16; TEMP 36.6; O2SAT 100
== END 2022-04-09 12:35 | disposition home or self-care (01) ==
PROVIDERS: PCP Family Medicine; Visit Provider Surgery
PROC: 0DJD8ZZ Inspection of Lower Intestinal Tract, Via Natural or Artificial Opening Endoscopic (ICD-10-PCS; CPT 45378; principal; 2022-04-09 11:15)
DX: Z12.11 Encounter for screening for malignant neoplasm of colon (principal)
CPT/HCPCS: 45378

== ENCOUNTER 2022-05-14 01:40 | Outpatient (CLI) | payer BC, SELFPAY ==
--- NOTE | 2022-05-14 | DI.RAD_ITS ---
Exam(s) XR HIP PELVIS ADULT BL EXAM: XR HIP PELVIS ADULT BL CLINICAL HISTORY: BILAT HIP PAIN, M25.551,M25.552. TECHNIQUE: 2D digital imaging was performed. COMPARISON: No exams were available for comparison FINDINGS: 3 views There is no evidence of pelvic nor hip fracture. Bone density normal. No osseous lesions. There is no joint space narrowing in either hip. No osteophytes. No bony excrescence. No evidence of avasc ular necrosis. Sacroiliac joints appear unremarkable. Bone density normal. IMPRESSION: No significant radiographic findings in the pelvis and hips. DATA REPOSITORY: RADIATION DOSE DELIVERED:
== END 2022-05-14 02:00 ==
LOC: DI 01:40
PROVIDERS: PCP Family Medicine; Visit Provider Nurse Practitioner Family
DX: M25.551 Pain in right hip (principal); M25.552 Pain in left hip
CPT/HCPCS: 73521

== ENCOUNTER 2022-08-06 03:03 | Outpatient (CLI) | payer BC, SELFPAY ==
--- NOTE | 2022-08-06 08:09 | DI.MAMMO_ITS ---
Exam(s) MAMMO SCREENING EXAM: MAMMO SCREENING CLINICAL HISTORY: SCREENING, Z12.39 TECHNIQUE: Mammograms were interpreted according to the usual protocol including computer analysis w [employer] CAD system, tomosynthesis and C-view imaging. COMPARISON: 2016 through 2021 FINDINGS: The breasts are composed of scattered fibroglandular densities, Breast Density category B. No suspicious masses or suspicious microcalcifications are seen. No skin thickening or abnormal axillary lymph nodes are seen. There has been no significant change from prior exams. IMPRESSION: BI-RADS Category 1, Negative mammogram Yearly screening mammography is recommended. Breast Density - Category B, scattered fibroglandular densities. A negative radiographic report should not delay biopsy if a dominant or clinically suspicious mass is present. Up to ten percent of cancers are not identified on mammography. A negative report may reinforce clinical impression. Adenosis and dense breasts may obscure an underlying neoplasm. False positive reports average 6 to 10%. Patient will receive a letter notifying them of these results.
== END 2022-08-06 03:23 ==
LOC: DI 03:03
PROVIDERS: PCP Family Medicine; Visit Provider Nurse Practitioner Family
DX: Z12.31 Encounter for screening mammogram for malignant neoplasm of breast (principal)
CPT/HCPCS: 77063; 77067

== ENCOUNTER 2022-08-18 13:23 | Outpatient (REF) | payer BC, SELFPAY ==
[2022-08-18 18:51] LABS: Abs Immature Grans 0.01 10^3/uL (0.0-0.06); Absolute Basophil Count 0.05 10^3/uL (0.0-0.2); Absolute Eosinophil Count 0.33 10^3/uL (0.0-0.7); Absolute Lymphocyte Count 1.57 10^3/uL (1.2-3.4); Absolute Monocyte Count 0.39 10^3/uL (0.1-0.8); Absolute Neutrophil Count 2.43 10^3/uL (1.2-6.7); Eosinophils % 6.9; HCT 43.9 % (36.0-46.0); HGB 14.5 g/dL (11.2-15.7); Immature Grans % 0.2; Lymphocytes % 32.8; MCH 28.5 pg (27.0-33.0); MCV 86 fL (80-95); MPV 10.2 fL (8.0-11.0); Monocytes % 8.2; Neutrophils % 50.9; Platelet Count 282 10^3/uL (130-400); RBC 5.09 10^6/uL (3.93-5.22); RDW 11.9 % (11.7-14.6); RDW-SD 37.9 fL; WBC 4.78 10^3/uL (4.4-10.8)
[2022-08-18 19:17] LABS: ALT 37 U/L (14-59); AST 19 U/L (15-37); Albumin 3.9 g/dL (3.4-5.0); Alkaline Phosphatase 96 U/L (46-116); Anion Gap 6.5 mmol/L (3-11); BUN 24 mg/dL (7-18); CO2 31.5 mmol/L (21.0-32.0); CREATININE 0.8 mg/dL (0.55-1.02); Calcium 9.4 mg/dL (8.5-10.1); Chloride 104 mmol/L (98-107); Estimated GFR 89.71 (mL/min/1.73m2); Glucose 94 mg/dL (74-106); Potassium 4.3 mmol/L (3.5-5.1); Sodium 142 mmol/L (136-145); TSH (W/Ref FT4) 1.61 uIU/mL (0.36-3.74); Total Protein 7.2 g/dL (6.4-8.2)
[2022-08-18 19:38] LABS: Hemoglobin A1C 5.4 % (<5.7)
== END 2022-08-18 13:24 | disposition home or self-care (01) ==
LOC: NCHCN 13:23
PROVIDERS: PCP Family Medicine; Visit Provider Nurse Practitioner Family
DX: R42 Dizziness and giddiness (principal); N95.1 Menopausal and female climacteric states
CPT/HCPCS: 80053; 83036; 84443; 85025

== ENCOUNTER 2022-10-02 16:32 | Emergency (ER) | payer BC, SELFPAY ==
[2022-10-02] VITALS (7 sets, daily range): BP systolic 106–113; BP diastolic 65–79; PULSE 87–107; RESP 16; TEMP 36.8; O2SAT 97–100
--- NOTE | 2022-10-02 16:45 | DI.CT_ITS ---
Exam(s) CT HEAD WO EXAM: CT HEAD WO CLINICAL HISTORY: Fall, Headache Vomiting. TECHNIQUE: Imaging Protocol: Axial computed tomography images with coronal and sagittal reformatted images were created and reviewed COMPARISON: CT HEAD WO/W SINUS WO from 12/26/2014 FINDINGS: There are no skull fractures. There is no fluid in the visualized paranasal sinuses. There is no evidence of intracranial hemorrhage, mass effect, or shift of midline structures. There are no extra-axial fluid collections. The ventricles are not enlarged or shifted and there is no blo od within the ventricular system nor within the basal cisterns. IMPRESSION: No acute intracranial findings on this noninfused CT scan of the brain. RADIATION DOSE DELIVERED: 727.37mGy.cm Total DLP DATA REPOSITORY: All CT scans at this facility are submitted to the National Radiology Data Registry (NRDR) Dose Index Registry (DIR) with the [employer] (ACR). RADIATION OPTIMIZATION: All CT scans at this facility use at least one of these dose optimization te chniques: automated exposure control; mA and/or kV adjustment per patient size (includes targeted exa ms where dose is matched to clinical indication); or iterative reconstruction.
--- NOTE | 2022-10-02 16:50 | W.ED.GENAD ---
Discharge Plan Disposition Patient Disposition: Home Condition: Stable Discharge Details Clinical Impression: Cellulitis of breast Primary Care Provider: Tonya Reveles ED Provider: Diya Florez Home Meds and New Rx's Prescriptions: New clindamycin HCl 150 mg capsule 450 mg PO TID 7 Days Qty: 63 0RF Rx Instructions: Take 3 caps by mouth three times daily x 7 days. No Action ibuprofen 200 mg capsule 600 mg PO TID-QID PRN multivitamin with minerals 1 EACH tablet 1 ea PO DAILY celecoxib [Celebrex] 100 mg capsule 100 mg PO BID metronidazole 0.75 % cream 1 applic topical BID Magnesium (oxide/AA chelate) 300 mg capsule 1 cap PO DAILY pgpnxgb-khhhvzjeke-RXJ-caff [id number] mg capsule 1 cap PO BID PRN loratadine 10 mg tablet 10 mg PO DAILY PRN gabapentin 300 MG capsule 300 mg PO TID Discharge Instructions Instructions: Cellulitis (ED) Additional Instructions: Please take the antibiotic 3 times daily as directed for the next 7 days. You were given the first dose here. Please follow-up with your plastic surgeon in the next 3 to 5 days. Follow-up sooner if any concerns. CT head within normal limits. Labs are largely within normal limits. Follow up with Surgeon/ primary care provider in 3-5 days. Return to ED sooner if any worsening or concerns. Increase oral fluids. Please take Tylenol or Ibuprofen with food every 4-6 hours as needed for pain and swelling. Take the nausea medication as directed. Referrals: Tonya Reveles MD [Primary Care Provider] - 1 week Medical Decision Making 52-year-old female presents to the ER accompanied by her friend with chief complaint of possible skin infection to her bilateral breasts. Patient is status post breast augmentation surgery in August. She is unsure when the redness began to her bilateral breast she thought it was normal. She does report tenderness to touch. She reports nausea vomiting which began at 230 this morning and chills. She is status post fundoplication so she cannot actually vomit. She also endorses falling out of the shower 2 days ago and hitting her head and a headache. She is alert and oriented denies any numbness weakness. No focal neurodeficits noted. She was seen at [facility] prior to arrival and referred here for further work-up. [facility] provider got a hold of 2; who is the patient surgery and recommended IV cefazolin 2 g IV and Keflex p.o. as an outpatient however patient is allergic to penicillin. Clindamycin was ordered. Workup ordered including labs, including lactate and blood cultures, Head CT due to recent Head injury, headache and Vomiting. CBC shows no leukocytosis, no left shift, lactate within normal limits 1.2, CMP shows BUN of 29 creatinine 0.9 glucose 123 magnesium slightly low at 1.[address] within normal limits. Patient discharged after receiving clindamycin 600 mg IV piggyback and clindamycin 450 mg 3 times a day p.o. prescription. Instructed to follow-up with surgeon return for any worsening, verbalized understanding. This text was generated using [employer] dictation system, please disregard any oddities of phrase or misspellings. Imaging Data Radiologic Study: Imaging: CT Scan Radiologist's impression: TECHNIQUE: Imaging protocol: Computed tomography of the head without contrast. COMPARISON: No relevant prior studies available. FINDINGS: Brain: No intracranial hemorrhage. No cerebral edema. Cerebral ventricles: No ventriculomegaly. Paranasal sinuses: Visualized sinuses are unremarkable. No fluid levels. Mastoid air cells: Visualized mastoid air cells are well aerated. Bones/joints: No skull fracture. Soft tissues: Scalp soft tissues are unremarkable. IMPRESSION: No acute findings. Unremarkable noncontrast CT head. Thank you for allowing us to participate in the care of your patient. Dictated and Authenticated by: Jermaine Pollard MD Lab Data Lab results reviewed: Yes I reviewed the patient's lab results. Labs: 10/02/22 16:58 Blood Blood Culture - Pending 10/02/22 16:46 Blood Blood Culture - Pending Laboratory Tests Range/Units 10/02/22 10/02/22 10/02/22 16:57 16:57 16:57 WBC (4.4-10.8) 10^3/uL 6.08 RBC (3.93-5.22) 10^6/uL 5.19 Hgb (11.2-15.7) g/dL 14.9 Hct (36.0-46.0) % 44.3 MCV (80-95) fL 85 MCH (27.0-33.0) pg 28.7 MCHC (32.0-36.0) % 33.6 RDW (11.7-14.6) % 11.9 Plt Count (130-400) 10^3/uL 262 MPV (8.0-11.0) fL 9.6 Immature Gran % 0.2 Neutrophils % 92.0 Lymphocytes % 3.1 Monocytes % 3.9 Eosinophils % 0.5 Basophils % 0.3 Nucleated RBC % (0.0-0.3) % 0.0 Absolute Neutrophils (1.2-6.7) 10^3/uL 5.59 Absolute Lymphocytes (1.2-3.4) 10^3/uL 0.19 L Absolute Monocytes (0.1-0.8) 10^3/uL 0.24 Absolute Eosinophils (0.0-0.7) 10^3/uL 0.03 Absolute Basophils (0.0-0.2) 10^3/uL 0.02 VBG Lactate (0.6-1.4) mmol/L 1.2 Sodium (136-145) mmol/L 141 Potassium (3.5-5.1) mmol/L 4.0 Chloride (98-107) mmol/L 102 Carbon Dioxide (21.0-32.0) mmol/L 28.0 Anion Gap (3-11) mmol/L 11.0 BUN (7-18) mg/dL 29 H Creatinine (0.55-1.02) mg/dL 0.9 Est GFR (CKD-EPI 2020) (mL/min/1.73m2) 77.40 Glucose (74-106) mg/dL 123 H Calcium (8.5-10.1) mg/dL 9.2 Magnesium (1.8-2.4) mg/dL 1.6 L Total Bilirubin (0.2-1.0) mg/dL 1.7 H AST (15-37) U/L 16 ALT (14-59) U/L 30 Alkaline Phosphatase (46-116) U/L 113 Total Protein (6.4-8.2) g/dL 7.5 Albumin (3.4-5.0) g/dL 3.9 HPI General Mode of arrival: ambulatory. Date/Time Provider Initiated Documentation: 10/02/22 16:42. Limitations to Documentation: no limitations. Information obtained by: patient, RN/MD ([facility]), RN notes reviewed and old records reviewed. HPI Narrative: 52-year-old female presents to the ER accompanied by her friend with chief complaint of possible skin infection to her bilateral breasts. Patient is status post breast augmentation surgery in August. She is unsure when the redness began to her bilateral breast she thought it was normal. She does report tenderness to touch. She reports nausea vomiting which began at 230 this morning and chills. She is status post fundoplication so she cannot actually vomit. She also endorses falling out of the shower 2 days ago and hitting her head and a headache. She is alert and oriented denies any numbness weakness. No focal neurodeficits noted. She was seen at [facility] prior to arrival and referred here for further work-up. [facility] provider got a hold of 2; who is the patient surgery and recommended IV cefazolin 2 g IV and Keflex p.o. as an outpatient however patient is allergic to penicillin. Clindamycin was ordered. Related Data Home Medications Medication Instructions Recorded Confirmed multivitamin with minerals 1 ea PO DAILY 06/22/14 04/09/22 gabapentin 300 mg capsule 300 mg PO TID 08/29/17 04/09/22 ibuprofen 200 mg capsule 600 mg PO TID-QID PRN 10/18/18 04/09/22 celecoxib 100 mg capsule (Celebrex) 100 mg PO BID 12/17/21 04/09/22 leizdww-jltdkfimqo-BFK-caffeine 30 1 cap PO BID PRN 12/17/21 04/09/22 mg-50 mg-325 mg-40 mg capsule magnesium oxide-magnesium amino 1 cap PO DAILY 12/17/21 04/09/22 acid chelate 300 mg capsule (Magnesium (oxide/AA chelate)) metronidazole 0.75 % topical cream 1 applic topical BID 12/17/21 04/09/22 loratadine 10 mg tablet 10 mg PO DAILY PRN 03/26/22 04/09/22 clindamycin HCl 150 mg capsule 450 mg PO TID Cellulitis 7 days 10/02/22 #63 caps Previous Rx's Medication Instructions Recorded clindamycin HCl 150 mg capsule 450 mg PO TID Cellulitis 7 days 10/02/22 #63 caps Allergies Allergy/AdvReac Type Severity Reaction Status Date / Time Penicillins Allergy Unknown unknown Verified 03/26/22 15:08 General Stated Complaint: Nausea/Vomit/Diar JERICA: 3 Review of Systems All systems reviewed & are unremarkable except as noted in HPI and below Constitutional Constitutional: Reports chills and Reports headache(s) ENT Ears, Nose, Mouth, and Throat: Reports headache(s) Neurologic Neurologic: Reports headache(s) PFSH All Active Problems (Updated 10/02/22 @ 18:46 by Diya Florez NP) Cellulitis of breast (Acute) Partial small bowel obstruction (Acute) Dyspareunia (Acute 09/21/12) Screening for colon cancer (Acute) Skin lesions, generalized (Acute) Migraine (Chronic) Acne (Acute) IBS (irritable bowel syndrome) (Chronic) Medical History Adjustment disorder Carpal tunnel syndrome COVID-19 virus infection end of August 2021 Hip pain, left Hip pain, right Sleep disorder Small bowel obstruction Sore throat Surgical History History of carpal tunnel release Right (per pt) History of hysterectomy, supracervical 2011 History of Joie fundoplication S/P ACL repair L Social History Smoking/Tobacco Use Status: Never Smoking risk assessment performed?: Yes Alcohol Intake: never Drug use: Never Do you feel safe at home: Yes Do you feel safe in your relationship?: Yes Female Reproductive History Menstrual Menopause type: surgical Exam Narrative Exam Narrative: Constitutional: Alert and oriented x3. Appears stated age. Normal body habitus. Head: Normocephalic, no trauma. Eyes: Pupils PERRL, Red reflex noted, EOM's intact. Eyelids symmetrical without lesions, discharge, or swelling. ENT: Bilateral TM's WNL, External ear normal to inspection, no mastoid TTP, swelling, or erythema, Nasal turbinates WNL, no nasal discharge. Normal dentition, Posterior pharynx WNL, no exudate. Chest: RRR, Normal S1, S2, distal pulses intact. Erythema noted approximately half way up breasts bilaterally, warm to touch. No appreciateble fluctuance. Resp: Lungs clear to auscultation bilaterally, no wheezes, rales, or rhonchi. Abdomen: Soft, non-distended, Normoactive bowel sounds all 4 quads. Musculoskeletal: Normal gait, 5/5 strength to all four extremities. Skin: No suspicious rashes or lesions. Capillary refill less than 2 sec. Neurologic: Cranial nerves II-XII intact. Alert and oriented x 3. Motor: No deficits noted. Sensory: Intact bilaterally all 4 extremities. Reflexes: DTR's intact bilaterally.. Hematologic/Lymphatic: No ecchymosis, no lymphadenopathy. Course Vital Signs Vital signs: Vital Signs Temperature 36.8 C 10/02/22 16:35 Pulse 107 H 10/02/22 16:35 Respiratory Rate 16 10/02/22 16:35 Blood Pressure 113/79 10/02/22 16:35 Pulse Oximetry 99 10/02/22 16:35 Temperature 36.8 C 10/02/22 16:35 Temperature Source Oral 10/02/22 16:35 Pulse 107 H 10/02/22 16:35 Respiratory Rate 16 10/02/22 16:35 Blood Pressure 113/79 10/02/22 16:35 Blood Pressure Position Sitting 10/02/22 16:35 Pulse Oximetry 99 10/02/22 16:35 Oxygen Delivery Method Room Air 10/02/22 16:35 Oxygen Flow Rate 0 10/02/22 16:35 Pain Level 2 10/02/22 16:35 Lab/Test Results Lab/Test Results: 10/02/22 16:46 Blood Blood Culture - Pending 10/02/22 16:46 Blood Blood Culture - Pending
[2022-10-02 16:59] LABS: Lactate 1.2 mmol/L (0.6-1.4)
[2022-10-02] MEDS: CLINDAMYCIN 600 MG/50 ML BAG 100 MG IVPB (16:59)
[2022-10-02 17:01] LABS: Abs Immature Grans 0.01 10^3/uL (0.0-0.06); Absolute Basophil Count 0.02 10^3/uL (0.0-0.2); Absolute Eosinophil Count 0.03 10^3/uL (0.0-0.7); Absolute Lymphocyte Count 0.19 10^3/uL (1.2-3.4); Absolute Monocyte Count 0.24 10^3/uL (0.1-0.8); Absolute Neutrophil Count 5.59 10^3/uL (1.2-6.7); Basophils % 0.3; Eosinophils % 0.5; HCT 44.3 % (36.0-46.0); HGB 14.9 g/dL (11.2-15.7); Immature Grans % 0.2; Lymphocytes % 3.1; MCH 28.7 pg (27.0-33.0); MCHC 33.6 % (32.0-36.0); MCV 85 fL (80-95); MPV 9.6 fL (8.0-11.0); Monocytes % 3.9; Platelet Count 262 10^3/uL (130-400); RBC 5.19 10^6/uL (3.93-5.22); RDW 11.9 % (11.7-14.6); WBC 6.08 10^3/uL (4.4-10.8)
[2022-10-02 17:20] LABS: ALT 30 U/L (14-59); AST 16 U/L (15-37); Albumin 3.9 g/dL (3.4-5.0); Alkaline Phosphatase 113 U/L (46-116); BUN 29 mg/dL (7-18); Bilirubin, Total 1.7 mg/dL (0.2-1.0); CREATININE 0.9 mg/dL (0.55-1.02); Calcium 9.2 mg/dL (8.5-10.1); Chloride 102 mmol/L (98-107); Glucose 123 mg/dL (74-106); Magnesium 1.6 mg/dL (1.8-2.4); Sodium 141 mmol/L (136-145); Total Protein 7.5 g/dL (6.4-8.2)
[2022-10-02] MEDS: Normal Saline 1,000 ML 1000 ML IV (17:45)
--- NOTE | 2022-10-02 17:57 | DI.VRAD_ITS ---
PROCEDURE INFORMATION: Exam: CT Head Without Contrast Exam date and time: 10/02/2022 5:29 PM Age: 52 years old Clinical indication: Other: Fall, headache vomiting TECHNIQUE: Imaging protocol: Computed tomography of the head without contrast. COMPARISON: No relevant prior studies available. FINDINGS: Brain: No intracranial hemorrhage. No cerebral edema. Cerebral ventricles: No ventriculomegaly. Paranasal sinuses: Visualized sinuses are unremarkable. No fluid levels. Mastoid air cells: Visualized mastoid air cells are well aerated. Bones/joints: No skull fracture. Soft tissues: Scalp soft tissues are unremarkable. IMPRESSION: No acute findings. Unremarkable noncontrast CT head. Dictated and Authenticated by: Jermaine Pollard MD. Ordering:MARVIN Keane MD
[2022-10-02] MEDS: Ondansetron O.D.T. 4 MG TABEF, 3 TABS/BTL PO (18:20)
[2022-10-02] MEDS: Magnesium Oxide 400 MG TAB PO (18:20)
[2022-10-02] MEDS: Clindamycin 150 MG CAP, 12 CAPS/BTL 450 MG PO (18:20)
[2022-10-02] MEDS: Acetaminophen 325 MG TAB 650 MG PO (18:21)
== END 2022-10-02 19:03 | disposition home or self-care (01) ==
PROVIDERS: Emergency Provider Registered Nurse Emergency; PCP Nurse Practitioner Family
DX: N61.0 Mastitis without abscess (principal); R11.2 Nausea with vomiting, unspecified
CPT/HCPCS: 36415; 80053; 87040; 96361; 96365; 99284; 70450; 83605; 83735; 85025

== ENCOUNTER 2022-11-09 18:40 | Outpatient (REF) | payer BC, SELFPAY ==
[2022-11-11 10:13] LABS: Hepatitis C Ab w Rflx HCV PCR Negative (Negative)
[2022-11-11 10:26] LABS: HIV-1/2 Ag & Ab Screen Negative (Negative)
[2022-11-11 10:59] LABS: Syphilis Serology (RPR) Negative (Negative)
[2022-11-11 12:57] LABS: Chlamydia Result Negative (Negative); GC Result Negative (Negative)
== END 2022-11-09 18:41 | disposition home or self-care (01) ==
LOC: NCHCN 18:40
PROVIDERS: PCP Nurse Practitioner Family; Visit Provider Nurse Practitioner Family
DX: Z11.3 Encounter for screening for infections with a predominantly sexual mode of transmission (principal)
CPT/HCPCS: 86803; 87389; 87491; 87591; 86592; 87480; 87510; 87660

== ENCOUNTER 2023-02-25 18:04 | Outpatient (REF) | payer BC, SELFPAY ==
[2023-02-25 21:16] LABS: Source Nasal/Nares
[2023-02-25 22:10] LABS: COVID-19 PCR Negative (Negative)
== END 2023-02-25 18:05 | disposition home or self-care (01) ==
LOC: LBN 18:04
PROVIDERS: PCP Nurse Practitioner Family; Visit Provider Physician Assistant Medical
DX: J02.9 Acute pharyngitis, unspecified (principal); R05.8 Other specified cough
CPT/HCPCS: 87635; 87070

== ENCOUNTER → 2023-07-06 03:43 | Outpatient (CLI) | payer BC, SELFPAY ==
--- NOTE | 2023-07-06 | DI.RAD_ITS ---
Exam(s) XR FOOT LT COMPLETE EXAM: XR FOOT LT COMPLETE CLINICAL HISTORY: PAIN LT FOOT, M79.672. TECHNIQUE: 2D digital imaging was performed. Three views. COMPARISON: No exams were available for comparison FINDINGS: BONES: No acute fracture is present. No bony destructive lesion is seen. Heel spur. JOINTS: No dislocation present. Hammertoe deformity of 2nd toe. Minimal degenerative changes. SOFT TISSUE: Normal. IMPRESSION: No acute abnormality. DATA REPOSITORY: RADIATION DOSE DELIVERED:
== END ==
PROVIDERS: PCP Nurse Practitioner Family; Visit Provider Nurse Practitioner Family
DX: M79.672 Pain in left foot (principal)
CPT/HCPCS: 73630

== ENCOUNTER 2023-07-13 20:52 | Outpatient (REF) | payer BC, SELFPAY ==
[2023-07-13 21:36] LABS: Hemoglobin A1C 5.5 % (<5.7)
[2023-07-13 21:42] LABS: ALT 24 U/L (14-59); AST 17 U/L (15-37); Albumin 3.8 g/dL (3.4-5.0); Alkaline Phosphatase 111 U/L (46-116); Anion Gap 8.1 mmol/L (3-11); BUN 27 mg/dL (7-18); Bilirubin, Total 0.7 mg/dL (0.2-1.0); CO2 28.9 mmol/L (21.0-32.0); CREATININE 0.8 mg/dL (0.55-1.02); Calcium 9.3 mg/dL (8.5-10.1); Calculated LDL 118 mg/dL (<100); Chloride 106 mmol/L (98-107); Cholesterol 219 mg/dL (<200); Estimated GFR 89.15 (mL/min/1.73m2); Glucose 93 mg/dL (74-106); HDL Cholesterol 86 mg/dL (40-60); Potassium 4.3 mmol/L (3.5-5.1); Sodium 143 mmol/L (136-145); TSH (W/Ref FT4) 1.55 uIU/mL (0.36-3.74); Total Protein 6.7 g/dL (6.4-8.2); Triglyceride 79 mg/dL (<150)
== END 2023-07-13 20:53 | disposition home or self-care (01) ==
LOC: NCHCN 20:52
PROVIDERS: PCP Nurse Practitioner Family; Visit Provider Nurse Practitioner Family
DX: R63.5 Abnormal weight gain (principal)
CPT/HCPCS: 80053; 80061; 83036; 84443

== ENCOUNTER → 2023-11-11 00:15 | Outpatient (CLI) | payer BC, SELFPAY ==
--- NOTE | 2023-11-11 11:41 | DI.MAMMO_ITS ---
Exam(s) MG MAMMO SCREENING 60 MIN DUR EXAM: MG MAMMO SCREENING 60 MIN DUR CLINICAL HISTORY: Z12.39 Screening, implants TECHNIQUE: Bilateral full field digital CC and MLO mammographic images were obtained with 3D tomosyn thesis and utilizing computer aided detection (CAD). COMPARISON: Available for comparison. FINDINGS: The patient now has bilateral breast implants. Masses/Architectural Distortion: None seen. Microcalcifications: No suspicious pleomorphic-type are seen. Skin Thickening/Nipple Retraction: None. IMPRESSION: 1. No significant interval change with no specific features of malignancy noted. 2. Unless there is more urgent need, screening mammography is recommended, as per [employer] guidelines. BI-RADS Category 1 - Negative Breast Density - Category B - Scattered areas of fibroglandular density Breast density category C or D implies that the patient has dense breast tissue. Dense breast tissue is very common and is not abnormal but dense breast tissue can make it harder to find cancer on a ma mmogram. Also, dense breast tissue may increase their breast cancer risk. This information about the result of the mammogram report was provided to the patient to raise their awareness. Use this report when you speak with the patient about their risks for breast cancer, which includes their family hist ory. At that time, you may recommend for more screening tests (Ultrasound or MRI) as they might be us eful based on their risk. A negative radiographic report should not delay biopsy if a dominant or clinically suspicious mass is present. Up to ten percent of cancers are not identified on mammography. A negative report may reinforce clinical impression. Adenosis and dense breasts may obscure an underlying neoplasm. False positive reports average 6 to 10%. Patient will receive a letter notifying them of these results.
== END ==
PROVIDERS: PCP Nurse Practitioner Family; Visit Provider Nurse Practitioner Family
DX: Z12.39 Encounter for other screening for malignant neoplasm of breast (principal); Z12.31 Encounter for screening mammogram for malignant neoplasm of breast; Z98.82 Breast implant status
CPT/HCPCS: 77063; 77067

== ENCOUNTER → 2023-11-22 02:18 | Outpatient (CLI) | payer BC, SELFPAY ==
--- NOTE | 2023-11-22 07:30 | DI.RAD_ITS ---
Exam(s) XR FOOT RT COMPLETE EXAM: XR FOOT RT COMPLETE CLINICAL HISTORY: Present to inform joint pain,rt foot pain,m79.671. TECHNIQUE: 2D digital imaging was performed. Three views. COMPARISON: CR XR FOOT LT COMPLETE from 11/22/2023 FINDINGS: BONES: No acute fracture is present. No bony destructive lesion is seen. Cysts small plantar calcane al spur. Mild intertarsal degenerative changes. JOINTS: No dislocation present. SOFT TISSUE: Normal. IMPRESSION: Mild degenerative changes. Small heel spur. DATA REPOSITORY: RADIATION DOSE DELIVERED:
--- NOTE | 2023-11-22 07:30 | DI.RAD_ITS ---
Exam(s) XR FOOT LT COMPLETE EXAM: XR FOOT LT COMPLETE CLINICAL HISTORY: First met cuneiform joint pain,lt foot pain,m79.672. TECHNIQUE: 2D digital imaging was performed. Three views. COMPARISON: CR XR FOOT LT COMPLETE from 07/06/2023 CR XR FOOT RT COMPLETE from 11/22/2023 FINDINGS: BONES: No acute fracture is present. No bony destructive lesion is seen. Small accessory navicular. Heel spur. JOINTS: No dislocation present. Minimal degenerative changes 1st MTP joint and intertarsal region. Hammertoe deformity of 2nd toe. SOFT TISSUE: Normal. IMPRESSION: Heel spur. Second toe hammertoe deformity. Mild degenerative change. DATA REPOSITORY: RADIATION DOSE DELIVERED:
== END ==
PROVIDERS: PCP Nurse Practitioner Family; Visit Provider Podiatrist
DX: M79.671 Pain in right foot (principal); M79.672 Pain in left foot; M77.32 Calcaneal spur, left foot; M19.072 Primary osteoarthritis, left ankle and foot; M19.071 Primary osteoarthritis, right ankle and foot; M77.31 Calcaneal spur, right foot; M20.41 Other hammer toe(s) (acquired), right foot
CPT/HCPCS: 73630

== ENCOUNTER 2024-01-10 02:34 | Outpatient (CLI) | payer BC, SELFPAY ==
--- NOTE | 2024-01-10 14:25 | DI.MRI_ITS ---
Exam(s) MR UPPER JOINT RT WO EXAM: MR UPPER JOINT RT WO CLINICAL HISTORY: RT SHOULDER PAIN, M25.511,PREVIOUS ROTATOR CUFF ISSUES. TECHNIQUE: Multiplanar multisequence MRI was performed. COMPARISON: CR XR SHOULDER RT COMPLETE 2+V from 08/29/2018 FINDINGS: BONES: There is no fracture or contusion pattern. JOINTS: Degenerative changes are seen at the acromioclavicular joint. There is marked arthrosis of t he glenohumeral joint with loss of the articular cartilage, subchondral cysts and edema and an osteop hyte arising from the humeral head. There is marked joint space narrowing. There is a small joint e ffusion. There is a 9 mm loose body in the subcoracoid bursa. TENDONS: Supraspinatus: No evidence of a supraspinatus tendon tear. There is supraspinatus tendinosis. Infraspinatus: There is tendinosis of the infraspinatus tendon without evidence of a tear. Subscapularis: There is subscapularis tendinosis without evidence of a tear. Teres [place]: Unremarkable. Biceps and [place]: Unremarkable. MUSCLES: Unremarkable. GLENOID LABRUM: There is degeneration of the superior labrum. A tear cannot be excluded. SOFT TISSUES: Unremarkable. LIGAMENTS: Unremarkable. OTHER: Subacromial and subdeltoid bursae are unremarkable. IMPRESSION: 1. Tendinosis of the supraspinatus, infraspinatus and subscapularis tendons without evidence of a tea r. 2. Marked arthrosis of the glenohumeral joint characterized by joint space narrowing, articular carti barbara loss and osteophytes. 3. Glenohumeral joint effusion with a 9 mm loose body. 4. Degenerative changes at the acromioclavicular joint. 5. Decreased size of the superior labrum which may reflect degeneration and/or tear. DATA REPOSITORY:
== END 2024-01-10 02:54 ==
PROVIDERS: PCP Nurse Practitioner Family; Visit Provider Nurse Practitioner Family
DX: M75.81 Other shoulder lesions, right shoulder (principal)
CPT/HCPCS: 73221

== ENCOUNTER 2024-08-11 09:37 | Outpatient (REF) | payer BC, SELFPAY ==
[2024-08-10 19:44] LABS: Abs Immature Grans 0.01 10^3/uL (0.0-0.06); Absolute Basophil Count 0.03 10^3/uL (0.0-0.2); Absolute Eosinophil Count 0.22 10^3/uL (0.0-0.7); Absolute Lymphocyte Count 1.64 10^3/uL (1.2-3.4); Absolute Neutrophil Count 3.41 10^3/uL (1.2-6.7); Basophils % 0.5 %; Eosinophils % 3.8 %; HCT 42.8 % (36.0-46.0); HGB 14.4 g/dL (11.2-15.7); Immature Grans % 0.2 %; Lymphocytes % 28.2 %; MCH 28.3 pg (27.0-33.0); MCHC 33.6 % (32.0-36.0); MCV 84 fL (80-95); MPV 10.4 fL (8.0-11.0); Monocytes % 8.6 %; Neutrophils % 58.7 %; Platelet Count 318 10^3/uL (130-400); RBC 5.09 10^6/uL (3.93-5.22); RDW 11.8 % (11.7-14.6); RDW-SD 35.6 fL; WBC 5.81 10^3/uL (4.4-10.8)
[2024-08-10 20:04] LABS: Hemoglobin A1C 5.4 % (<5.7)
[2024-08-10 20:06] LABS: ALT 25 U/L (14-59); AST 15 U/L (15-37); Albumin 4.1 g/dL (3.4-5.0); Alkaline Phosphatase 89 U/L (46-116); Anion Gap 9.7 mmol/L (3-11); BUN 24 mg/dL (7-18); Bilirubin, Total 1.1 mg/dL (0.2-1.0); CO2 26.3 mmol/L (21.0-32.0); CREATININE 0.8 mg/dL (0.55-1.02); Calcium 9.8 mg/dL (8.5-10.1); Calculated LDL 117 mg/dL (<100); Chloride 106 mmol/L (98-107); Cholesterol 220 mg/dL (<200); Glucose 89 mg/dL (74-106); HDL Cholesterol 88 mg/dL (>or=50); Potassium 4.2 mmol/L (3.5-5.1); Sodium 142 mmol/L (136-145); TSH (W/Ref FT4) 0.87 uIU/mL (0.36-3.74); Triglyceride 76 mg/dL (<150)
== END 2024-08-11 09:38 | disposition home or self-care (01) ==
LOC: NCHCN 09:37
PROVIDERS: PCP Nurse Practitioner Family; Visit Provider Nurse Practitioner Family
DX: Z13.1 Encounter for screening for diabetes mellitus (principal); Z68.34 Body mass index [BMI] 34.0-34.9, adult; Z13.220 Encounter for screening for lipoid disorders; Z13.0 Encounter for screening for diseases of the blood and blood-forming organs and certain disorders involving the immune mechanism; Z13.29 Encounter for screening for other suspected endocrine disorder; E66.9 Obesity, unspecified
CPT/HCPCS: 80053; 80061; 83036; 84443; 85025

== ENCOUNTER 2024-11-14 03:37 | Outpatient (CLI) | payer BC, SELFPAY ==
--- NOTE | 2024-11-14 | DI.MAMMO_ITS ---
Exam(s) MG MAMMO SCREENING 60 MIN DUR EXAM: MG MAMMO SCREENING 60 MIN DUR CLINICAL HISTORY: SCREENING, Z12.31, IMPLANTS. TECHNIQUE: Bilateral full field digital CC and MLO mammographic images were obtained with 3D tomosynthesis and utilizing computer aided detection (CAD). Both conventional and implant displacement views were performed. COMPARISON: Prior mammograms were reviewed. FINDINGS: Again noted are retro glandular prepectoral implants which appear intact. There are no new left breast findings. In the right breast on the 3D cc view there is an asymmetric density-possible 5 x 3 mm nodule located 4.5 cm in from the nipple, medial of center on the CC view. Spot compression recommended. There are no malignant-appearing microcalcification groups in this region or elsewhere in either breast. There is no significant architectural distortion nor skin thickening-retraction. IMPRESSION: 1. Radiographic evidence of malignancy in left breast. 2. Asymmetric density-possible 5 x 3 mm nodule located medial of center in the right breast. Further imaging with spot compression CC view and ultrasound of the right breast recommended. BI-RADS Category 0 - Incomplete: Need additional imaging evaluation Breast Density - Category B - There are scattered areas of fibroglandular density. Breast density Category C or D implies that the patient has dense breast tissue. Dense breast tissue can make it harder to find cancer on a mammogram. Dense breast tissue is also associated with an increased risk of breast cancer. This information about the result of the mammogram report was provided to the patient to raise their awareness. Use this report when you speak with the patient about their risks for breast cancer, which includes their family history. At that time, you may recommend additional screening tests (Ultrasound or MRI) as these tests may add significant information. A negative radiographic report should not delay biopsy if a dominant or clinically suspicious mass is present. Up to ten percent of cancers are not identified on mammography. A negative report may reinforce clinical impression. Adenosis and dense breasts may obscure an underlying neoplasm. False positive reports average 6 to 10%. Patient will receive a letter notifying them of these results.
== END 2024-11-14 03:57 ==
PROVIDERS: PCP Nurse Practitioner Family; Visit Provider Nurse Practitioner Family
DX: Z12.31 Encounter for screening mammogram for malignant neoplasm of breast (principal); R92.323 Mammographic fibroglandular density, bilateral breasts
CPT/HCPCS: 77063; 77067

== ENCOUNTER 2024-11-17 01:29 | Outpatient (CLI) | payer BC, SELFPAY ==
--- NOTE | 2024-11-17 | DI.US_ITS ---
Exam(s) MG MAMMO SCREEN CALL BACK UNI US BREAST RT COMPLETE EXAM: MG MAMMO SCREEN CALL BACK UNI-RIGHT AND COMPLETE RIGHT BREAST ULTRASOUND CLINICAL HISTORY: ASYMMETRIC DENSITY POSSIBLE 5X3MM NODULE MEDIAL CENTER RT BREAST R92.8. TECHNIQUE: Unilateral RIGHT BREAST spot mammographic images obtained with 3D tomosynthesisand utilizing computer aided detection (CAD). . Complete RIGHT breast Ultrasound was also performed, including all 4 quadrants, the retroareolar region, and the ipsilateral axilla. COMPARISON: Prior mammograms were reviewed. This additional imaging was performed due to findings described on the recent screening mammogram of 11/14/2024. FINDINGS: DIAGNOSTIC MAMMOGRAM: Additional RIGHT BREAST mammographic views performed todayrender this area less concerning. We proceeded with ultrasound. COMPLETE RIGHT BREAST ULTRASOUND: Ultrasound performed today reveals no evidence of solid or significant cystic lesions in all 4 quadrants of the right breast.. Scanning of the ipsilateral axilla reveals no significant adenopathy. IMPRESSION: 1. No radiographic evidence of malignancy in the right breast. 2. Negative complete right breast ultrasound Appropriate follow-up is to keep this patient on her yearly mammogram schedule, with earlier imaging if a self detected breast change is noted.. The patient was informed of these findings and recommendations by myself prior to leaving the department today. BI-RADS Category 1 - Negative Breast Density - Category B - There are scattered areas of fibroglandular density. Breast density Category C or D implies that the patient has dense breast tissue. Dense breast tissue can make it harder to find cancer on a mammogram. Dense breast tissue is also associated with an increased risk of breast cancer. This information about the result of the mammogram report was provided to the patient to raise their awareness. Use this report when you speak with the patient about their risks for breast cancer, which includes their family history. At that time, you may recommend additional screening tests (Ultrasound or MRI) as these tests may add significant information. A negative radiographic report should not delay biopsy if a dominant or clinically suspicious mass is present. Up to ten percent of cancers are not identified on mammography. A negative report may reinforce clinical impression. Adenosis and dense breasts may obscure an underlying neoplasm. False positive reports average 6 to 10%. Patient will receive a letter notifying them of these results.
== END 2024-11-17 01:49 ==
LOC: DI 01:29
PROVIDERS: PCP Nurse Practitioner Family; Visit Provider Nurse Practitioner Family
DX: Z12.31 Encounter for screening mammogram for malignant neoplasm of breast (principal); R92.8 Other abnormal and inconclusive findings on diagnostic imaging of breast; R92.323 Mammographic fibroglandular density, bilateral breasts
CPT/HCPCS: 76642; 77063; 77067